=== PATIENT | female | born 2000 | race Caucasian/White ===

== ENCOUNTER 2023-03-11 14:41 | Outpatient (CLI) | payer OTHER, SELFPAY ==
[2023-03-11 16:04] LABS: HIV 1/2 Ab P24 Ag Result Negative (Negative)
[2023-03-11 17:39] LABS: Hepatitis C Virus Antibody Negative (Negative)
[2023-03-12 16:39] LABS: Rapid Plasma Reagin Non-Reactive (NonReactive)
[2023-03-17 18:01] LABS: HSV 1 IgM Screen Negative (Negative); HSV 2 IgM Screen Negative (Negative)
== END 2023-03-11 14:42 | disposition home or self-care (01) ==
PROVIDERS: PCP Pediatrics; Visit Provider Registered Nurse
DX: Z20.2 Contact with and (suspected) exposure to infections with a predominantly sexual mode of transmission (principal)
CPT/HCPCS: 36415; 86592; 86695; 86696; 86703; 86803; G0432

== ENCOUNTER 2023-08-31 16:31 | Outpatient (CLI) | payer OTHER, SELFPAY ==
[2023-08-31 17:28] LABS: Basophils Percent Auto 0.3 % (0.2-1.2); Eosinophils Absolute Auto 0.1 K/mm3 (0-0.3); Eosinophils Percent Auto 1.7 % (0-4.4); Hematocrit 39.8 % (37.0-47.0); Hemoglobin 13.1 g/dL (12.0-15.0); Lymphocytes Absolute Auto 2.17 K/mm3 (0.9-3.2); Mean Corpuscular HGB Conc 32.9 g/dl (32-36); Mean Corpuscular Hemoglobin 29.8 pg (26-34); Mean Corpuscular Volume 90.5 fl (80-100); Mean Platelet Volume 9.6 fl (7.4-10.4); Monocytes Absolute Auto 0.5 K/mm3 (0.1-0.6); Monocytes Percent Auto 8.5 % (2.6-8.5); Neutrophils Absolute Auto 3.1 K/mm3 (1.3-6.7); Neutrophils Percent Auto 52.5 % (45.5-73.1); Platelet Count Result 319 k/mm3 (150-375); Red Cell Distribution Width 11.9 % (11.5-14.5); White Blood Count 5.9 K/mm3 (4.5-10.0)
[2023-08-31 17:44] LABS: Alanine Aminotransferase 33 U/L (6-35); Albumin Level 4.5 g/dL (3.5-5.1); Alkaline Phosphatase 41 U/L (38-126); Anion Gap 10 mmol/L (8-16); Aspartate Amino Transferase 28 U/L (14-36); Bilirubin,Total 0.4 mg/dL (0.2-1.3); Blood Urea Nitrogen 10 mg/dL (7-17); Calcium 9.2 mg/dL (8.4-10.2); Carbon Dioxide 23 mmol/L (22-30); Chloride 104 mmol/L (98-107); Cholesterol 206 mg/dL (0-200); Estimated Glomerular Filt Rate > 60; Glucose 114 mg/dL (65-110); HDL Direct 36 mg/dL; Potassium 3.7 mmol/L (3.4-5.0); Sodium 137 mmol/L (137-145); Triglycerides 408 mg/dL (<150)
[2023-08-31 17:55] LABS: LDL Cholesterol Direct 118 mg/dL
== END 2023-08-31 16:32 | disposition home or self-care (01) ==
LOC: ANHLAB 16:33
PROVIDERS: PCP Family Medicine Adolescent Medicine; Visit Provider Nurse Practitioner Family
DX: R55 Syncope and collapse (principal); R79.89 Other specified abnormal findings of blood chemistry; Z13.220 Encounter for screening for lipoid disorders
CPT/HCPCS: 36415; 80053; 80061; 84443; 85025

== ENCOUNTER 2023-09-11 14:09 | Emergency (ER) | payer OTHER, SELFPAY ==
[2023-09-11 14:23] VITALS: BP 114/66; PULSE 93; RESP 16; TEMP 36.6; O2SAT 98
--- NOTE | 2023-09-11 14:48 | ED.URI ---
HPI - URI/Sore Throat General Chief Complaint: Upper Respiratory Infection Stated Complaint: SORE THROAT History of Present Illness HPI Narrative: 23-year-old female presents for complaint of sore throat about 4 days. She also reports nasal congestion and drainage. She denies cough shortness of breath, wheezing, nausea, vomiting, fevers chills. Not taking anything for symptoms. Endorses sick contacts, she works as a teacher. Related Data Allergies Allergy/AdvReac Type Severity Reaction Status Date / Time Sulfa (Sulfonamide Allergy Severe Difficulty Verified 09/11/23 14:34 Antibiotics) Breathing amoxicillin Allergy Intermediate Hives Verified 09/11/23 14:34 cefdinir Allergy Intermediate Hives Verified 09/11/23 14:34 clarithromycin Allergy Unknown Hives Verified 09/11/23 14:34 POTASSIUM CLAVULANATE Allergy Unknown HIVES Uncoded 09/11/23 14:34 Review of Systems Review of Systems: CONSTITUTIONAL: Denies body aches, fever, chills, or sweats. EYES: Denies visual changes, redness, or discharge. ENT: reports rhinorrhea, congestion, sore throat CARDIOVASCULAR: Denies chest pain, palpitations, or edema. RESPIRATORY: Denies dyspnea. GASTROINTESTINAL: Denies abdominal pain, nausea, vomiting, or diarrhea. SKIN: Denies rash, itching, or wounds. MUSCULOSKELETAL: Denies back pain, joint pain, or myalgia. NEUROLOGIC: Denies headache PMFSH Past Medical History Medical History Anxiety Benign mole Fracture of metatarsal of left foot, closed Left ankle pain Nexplanon removal Sebaceous cyst Surgical History Surgical History History of incision and drainage (2019) Parotid Cyst History of tonsillectomy and adenoidectomy (2020) [place] teeth removed Family History Family History Mother Asthma Depression Heart disease Father Hypertension Elevated cholesterol Sibling Depression Grandparent Breast cancer Lung cancer Social History Social History Smoking status: Never smoker Alcohol intake: current Alcohol use details: seltzers no more than every other weekend. Substance use: never Lack of Transportation: No Lack of Food: Never True Current Housing: I Have Housing Concerned About Future Housing: No Difficulty Paying Gas/Electric Bills: No Difficulty Paying for Meds: No Currently Unemployed: No Education: Bachelor's Degree Difficulty w/ Childcare or Family Care: No Living arrangements: with roommate(s) Additional living arrangements comments: College student Occupation/Education: student Gender identity (if verbalized by the patient): Female Sexual Orientation (if Verbalized by the Patient): Straight or Heterosexual Spiritual care concerns: No Exam Narrative: GENERAL: well-appearing, no acute distress. EYES: conjunctivae clear ENT: Mucous membranes moist. TMs pearly oneal with normal light reflex bilaterally; no tragal tenderness. Oropharynx erythematous without lesions. Tonsils absent No drooling, no hoarseness, no trismus, uvula midline. No tripod positioning, hot potato voice, or soft palate swelling. NECK: Supple. No lymphadenopathy CHEST: Clear to auscultation, breath sounds equal. No respiratory distress, speaks in full sentences. HEART: Regular rate and rhythm. No murmur heard. SKIN: Warm, dry, no rash. NEURO: Alert and oriented x3. Course Course Emergency Course: Patient is aware of diagnosis, understands and agrees to treatment plan. Anticipatory guidance given. Patient agrees to follow-up as directed and is aware of reasons to seek care at the emergency department. Portions of this record may have been created with voice recognition software Level of Care: Express Care Visit Vital Signs Vital signs: Vital Signs [place]
== END 2023-09-11 15:06 | disposition home or self-care (01) ==
PROVIDERS: Emergency Provider Nurse Practitioner Family; PCP Family Medicine Adolescent Medicine
DX: J02.9 Acute pharyngitis, unspecified (principal); F41.9 Anxiety disorder, unspecified
CPT/HCPCS: 87081; 87880; 99213; G0463

== ENCOUNTER 2024-01-01 10:32 | Emergency (ER) | payer OTHER, SELFPAY ==
[2024-01-01 10:48] VITALS: BP 117/84; PULSE 118; RESP 16; TEMP 36.5; O2SAT 99
--- NOTE | 2024-01-01 11:02 | ED.URI ---
HPI - URI/Sore Throat General Chief Complaint: Upper Respiratory Infection Stated Complaint: SORE THROAT/CONGESTION/FEVER Time Seen by Provider: 01/01/24 10:53 Source: patient and RN notes reviewed Mode of arrival: ambulatory Limitations: no limitations History of Present Illness HPI Narrative: Patient presents today complaining of body aches, fatigue, fever up to 101, sore throat, congestion. Symptoms began yesterday. She has tried DayQuil, NyQuil, Tylenol and currently rates her pain 02/06. COVID-19 a at home negative Related Data Home Medications Medication Instructions Recorded Confirmed drospirenone (contraceptive) 4 mg 1 tablet PO DAILY 01/01/24 01/01/24 (28) tablet (Slynd) Allergies Allergy/AdvReac Type Severity Reaction Status Date / Time Sulfa (Sulfonamide Allergy Severe Difficulty Verified 01/01/24 10:40 Antibiotics) Breathing amoxicillin Allergy Intermediate Hives Verified 01/01/24 10:40 cefdinir Allergy Intermediate Hives Verified 01/01/24 10:40 clarithromycin Allergy Unknown Hives Verified 01/01/24 10:40 POTASSIUM CLAVULANATE Allergy Unknown HIVES Uncoded 01/01/24 10:40 Review of Systems Review of Systems: CONSTITUTIONAL: + body aches, fatigue, fever EYES: Denies visual changes, redness, or discharge. ENT: Denies rhinorrhea, or otalgia.+ congestion, sore throat CARDIOVASCULAR: Denies chest pain, palpitations, or edema. RESPIRATORY: Denies cough or dyspnea. GASTROINTESTINAL: Denies abdominal pain, nausea, vomiting, or diarrhea. GENITOURINARY: Denies dysuria or hematuria. SKIN: Denies rash, itching, or wounds. MUSCULOSKELETAL: Denies back pain, joint pain, or myalgia. NEUROLOGIC: Denies headache, numbness, tingling, or weakness. PSYCH: Denies depression or anxiety. [facility] Past Medical History Medical History Anxiety Benign mole Fracture of metatarsal of left foot, closed Left ankle pain Nexplanon removal Sebaceous cyst Surgical History Surgical History History of incision and drainage (2019) Parotid Cyst History of tonsillectomy and adenoidectomy (2020) [place] teeth removed Family History Family History Mother Asthma Depression Heart disease Father Hypertension Elevated cholesterol Sibling Depression Grandparent Breast cancer Lung cancer Social History Social History Smoking status: Never smoker Alcohol intake: current Alcohol use details: seltzers no more than every other weekend. Substance use: never Lack of Transportation: No Lack of Food: Never True Current Housing: I Have Housing Concerned About Future Housing: No Difficulty Paying Gas/Electric Bills: No Difficulty Paying for Meds: No Currently Unemployed: No Education: Bachelor's Degree Difficulty w/ Childcare or Family Care: No Living arrangements: with roommate(s) Additional living arrangements comments: College student Occupation/Education: student Gender identity (if verbalized by the patient): Female Sexual Orientation (if Verbalized by the Patient): Straight or Heterosexual Spiritual care concerns: No Comments At time of signature, I have reviewed and agree with nursing past medical, surgical, social and family history unless otherwise noted. Please see nursing chart for further information. There is no relevant family history pertinent to the presenting complaint Exam Narrative: GENERAL: Mildly ill-appearing, well-nourished, and in no acute distress. HEAD: Normocephalic, atraumatic. EYES: EOMI. No redness or drainage. Conjunctivae normal. ENT: Mucous membranes pink and moist. Nares congested with rhinorrhea. TMs normal bilaterally. Throat normal. Uvula midline. NECK: Normal AROM. Supple. No lymphadenopathy. C
== END 2024-01-01 11:25 | disposition home or self-care (01) ==
PROVIDERS: Emergency Provider Nurse Practitioner; PCP Family Medicine Adolescent Medicine
DX: B34.9 Viral infection, unspecified (principal)
CPT/HCPCS: 87081; 87804; 87880; 99213; G0463

== ENCOUNTER 2024-02-25 10:12 | Outpatient (CLI) | payer OTHER, SELFPAY ==
[2024-02-25 10:44] LABS: Basophils Percent Auto 0.5 % (0.2-1.2); Eosinophils Absolute Auto 0.1 K/mm3 (0-0.3); Hematocrit 42.3 % (37.0-47.0); Immature Granulocyte Absolute 0.02 K/mm3 (0.00-0.031); Immature Granulocyte Percent A 0.2 % (0-0.5); Lymphocytes Absolute Auto 1.83 K/mm3 (0.9-3.2); Mean Corpuscular HGB Conc 33.1 g/dl (32-36); Mean Corpuscular Hemoglobin 29.7 pg (26-34); Mean Corpuscular Volume 89.6 fl (80-100); Mean Platelet Volume 9.3 fl (7.4-10.4); Monocytes Absolute Auto 0.6 K/mm3 (0.1-0.6); Monocytes Percent Auto 7.1 % (2.6-8.5); Neutrophils Absolute Auto 5.7 K/mm3 (1.3-6.7); Neutrophils Percent Auto 69.2 % (45.5-73.1); Platelet Count Result 324 k/mm3 (150-375); Red Blood Count 4.72 M/mm3 (4.2-5.4); Red Cell Distribution Width 12.7 % (11.5-14.5); White Blood Count 8.3 K/mm3 (4.5-10.0)
[2024-02-25 10:48] LABS: Alanine Aminotransferase 41 U/L (6-35); Albumin Level 4.9 g/dL (3.5-5.1); Alkaline Phosphatase 51 U/L (38-126); Anion Gap 10 mmol/L (4-12); Aspartate Amino Transferase 30 U/L (14-36); Bilirubin,Total 0.4 mg/dL (0.2-1.3); Blood Urea Nitrogen 12 mg/dL (7-17); CRP < 0.5 mg/dL (<1.0); Calcium 10.2 mg/dL (8.4-10.2); Carbon Dioxide 22 mmol/L (22-30); Chloride 104 mmol/L (98-107); Estimated Glomerular Filt Rate > 60; Glucose 106 mg/dL (65-110); Potassium 4.4 mmol/L (3.4-5.0); Sodium 136 mmol/L (137-145)
[2024-02-25 10:51] LABS: Immunoglobulin A 352 mg/dL (70-400)
[2024-02-29 09:32] LABS: Tissue Transglutaminase IgA Ab <1.0 U/mL (<15.0)
== END 2024-02-25 10:13 | disposition home or self-care (01) ==
PROVIDERS: PCP Family Medicine Adolescent Medicine
DX: R10.9 Unspecified abdominal pain (principal)
CPT/HCPCS: 36415; 80053; 82784; 85025; 86140; 86364

== ENCOUNTER 2024-12-28 09:25 | Outpatient (CLI) | payer OTHER, SELFPAY ==
[2024-12-28 10:40] LABS: Alanine Aminotransferase 26 U/L (6-35); Albumin Level 4.5 g/dL (3.5-5.1); Alkaline Phosphatase 47 U/L (38-126); Aspartate Amino Transferase 26 U/L (14-36); Bilirubin,Total 0.4 mg/dL (0.2-1.3)
[2024-12-28 10:55] LABS: Iron 84 ug/dL (37-170)
[2024-12-28 11:04] LABS: Percent Iron Saturation 24 % (20-50)
[2024-12-28 11:28] LABS: Hepatitis B Surface Antigen Negative (Negative)
[2024-12-28 11:46] LABS: Hepatitis B Surface Anti Res Negative; Hepatitis C Virus Antibody Negative (Negative)
[2024-12-29 06:18] LABS: Hepatitis B Core Ab Total NON-REACTIVE (NON-REACTIVE)
[2024-12-29 11:03] LABS: Alpha-1-Antitrypsin, QN 115 mg/dL (83-199); Ceruloplasmin 23 mg/dL (14-48)
[2024-12-30 10:12] LABS: Actin Antibody (IgG) 25 U (<20)
== END 2024-12-28 09:26 | disposition home or self-care (01) ==
DX: K62.5 Hemorrhage of anus and rectum (principal); R74.01 Elevation of levels of liver transaminase levels
CPT/HCPCS: 36415; 80076; 82103; 82390; 82728; 83540; 83550; 86364; 86704; 86706; 86803; 87340

== ENCOUNTER 2025-01-06 08:15 | Outpatient (CLI) | payer OTHER, SELFPAY ==
--- NOTE | ~2025-01-06 | US_ITS ---
EXAMINATION TYPE: US breast RT limited COMPARISON: NONE REASON FOR STUDY: N63.0 - Unspecified lump in unspecified breast TECHNIQUE: Targeted sonographic evaluation of the right breast was performed. INTERPRETATION: At the 7:00 position right breast, 4 cm from the nipple, there is a 1.4 x 1.4 x 1.1 cm circumscribed hypoechoic mass with mildly lobulated borders. There is minimal internal heterogeneity lesion. IMPRESSION: 1.4 x 1.4 x 1.1 cm solid mass at 7:00 position right breast, as detailed above. 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 Alternatively, six-month fo llow-up ultrasound can be performed to assess for stability. BI-RADS CATEGORY: BI-RADS 4A: Suspicious, consider biopsy Reviewed, dictated and finalized at location . ODULE ASSEMBLY MACHINE TENDER IMPRESSION: 1.4 x 1.4 x 1.1 cm solid mass at 7:00 position right breast, as detailed above. 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 Alternatively, six-month follow-up ultrasound can be performed to assess for stability. BI-RADS CATEGORY: BI-RADS 4A: Suspicious, consider biopsy
--- OUTSIDE RECORDS SUMMARY | 2025-01-06 08:22 | XMS_ITS | Referral Summary ---
Author Organization [facility] Address [address] [place] [address] Care Team Providers Care Drilling Field Professional Name Role Phone Angle Saul MD Primary Care Provider [phone] Source Comments [facility],non-owned Affiliates and Associated Physician Practices is amultiple site organization consisting of ambulatory clinics and hospital sitesin [place], [place], [place] and [place]. This disclosure is being madepursuant to the Care Everywhere program and may not contain all information available regarding this patient. Last updated 18.[facility] [employer] Encounters Date Type Department Care Team Description 11/19/2024 Travel from Last 3 Months Allergies Active Allergy Reactions Criticality Noted Date Comments Amoxicillin Urticaria Medium 08/07/2016 Amoxicillin-Pot Clavulanate Urticaria,Rash Medium 09/21/2017 Augmentin Rash Medium 09/21/2017 Cefepime Itching Medium 05/05/2019 Clarithromycin Rash,Urticaria Medium 08/07/2016 Clavulanic Acid Urticaria Medium 08/07/2016 Fluoxetine Psychiatric High 11/19/2024 Suicidal Ideations Sulfa Drugs Anaphylaxis High 05/05/2019 Medications * Be aware that medications may not be up to date on this document. Alwaysverify current medications with the patient. Medication Sig Dispensed Refills Start Date End Date Status montelukast (SINGULAIR) 10 MG tablet Take 10 mg by mouth at bedtime Active omeprazole (PriLOSEC) 20 MG capsule Take 1 (one) capsule by mouth daily before breakfast Active dicyclomine (Bentyl) 10 MG capsule Take 1 (one) capsule by mouth 4 times daily as needed (GI Issues) Active venlafaxine XR 24hr (Effexor XR) 75 MG capsule Take 1 (one) capsule by mouth daily with breakfast for 14 days, THEN 2 (two) capsules daily with breakfast for 16 days. 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/19/2024 Generalized anxiety disorder 11/19/2024 Chronic left-sided low back pain with sciatica 1 01/10/2017 Resolved Problems Problem Noted Date Diagnosed Date Resolved Date Ingrown nail of great toe of right foot 01/06/2023 11/19/2024 Acute gastroenteritis 10/02/20222023 Epigastric pain 10/02/2022 11/19/2024 Burning with urination 12/27/201911/19 Cellulitis of face Parotid abscess 11/19/2024 Social History Tobacco Use Types Packs/Day Years Used Date Smoking Tobacco: Passive Smo ke Exposure - Never Smoker Smokeless Tobacco: Never Alcohol Use Standard Drinks/Week Comments Yes 0 (1 standard drink = 0.6 oz pur e alcohol) socially Education Answer Date Recorded What is the highest level of school you have completed or the highest degree you have received? Bachelor's degree (e.g., BA, AB, BS) 11/19/2024 Sex and Gender Information Value Date Recorded Sex Assigned at Not on file Gender Identity Not on file Sexual Orientation Not on file Last Filed Vital Signs Vital Sign Reading Time Taken Comments Blood Pressure 124/79 11/19/2024 5:08 PM CYTOLOGY TEACHER Pulse 86 11/19/2024 5:08 PM CYTOLOGY TEACHER Temperature 36.4 C (97.5 F) 11/19/2024 5:08 PM CYTOLOGY TEACHER Respiratory Rate 18 03/20/2024 2:18 AM CDT Oxygen Saturation 98% 03/20/2024 3:31 AM CDT Inhaled Oxygen Concentration 95% 05/05/2019 5 :00 PM CDT Weight 109.3 kg (241 lb) 11/19/2024 5:08 PM CYTOLOGY TEACHER Height 172.7 cm (5' 8 ) 11/19/2024 5:08 PM CYTOLOGY TEACHER Body Mass Index 36.64 11/19/2024 5:08 PM CYTOLOGY TEACHER Plan of Treatment Not on file Advance Directives * Full Code (Latest Code Status on File) Date Activated Date Inactivated Comments 05/05/2019 5:23 PM 05/08/2019 4:29 PM Care Teams Drilling Field Professional Relationship Specialty Start Date End Date Angle Saul MD [address] [place] [address] PCP - General Pediatrics 09/21/17
--- OUTSIDE RECORDS SUMMARY | 2025-01-06 08:22 | XMS_ITS | Continuity of Care Document ---
Author Organization [facility] [facility] Address [address] [place] [address] Phone Care Team Providers Care Photographic Hand Developer Name Role Phone Deon Larson MD Unavailable [...] Procedure Date HEALTH RISK ASSESSMENT, PATIENT-FOCUSED OFFICE [id number] HEALTH RISK ASSESSMENT, PATIENT-FOCUSED OFFICE [id number] BODY MASS INDEX DOCD SYST BP LT 130 MM HG DIAST BP 80-89 MM HG Advance Directives Directive Yes / No Effective Date File Name No Information Encounters Encounter Description Practice Location Reason(s) For Visit Diagnoses Date Provider Providers Copied on Encounter [facility], [address], [place], [place], [id number] , tel: [phone] [facility] Asthma Allergy Buna No Information [address] [place] [address], [id number] , . tel: [phone] [facility], [address], [place], [place], [id number] , tel: [phone] [facility] Asthma Allergy Buna No Information 3 Neo Chavarria. [address] [place] [address], [id number] , . tel: [phone] OFFICE [id number] [facility], [address], [place], [place], [id number] , tel: [phone] [facility] Asthma Allergy Buna asthma (chief complaint) Asthma-con trol (chief complaint) allergies (chief complaint) GERD (chief complaint) Mild persistent asthma, uncomplicatedSeason al allergic rhinitis due to pollenGastroesophag eal reflux disease, unspecified whether esophagitis present 2 [address] [place]. [address], [id number] , . tel: [phone] Referring Provider: Deon Larson [address] [place] [address], [address] . tel:[phone] OFFICE [id number] TAILED [facility], [address], [place], [place], [id number] , tel: [phone] [facility] Asthma Allergy Buna asthma (chief complaint) Asthma-con trol (chief complaint) allergies (chief complaint) Seasonal allergic rhinitis due to pollenModerate persistent asthma, uncomplicatedAcute atopic conjunctivitis, bilateral Hugo- 0 Neo [place]. [address], [id number] , . tel: [phone] Referring Provider: Angle Saul, [address] [facility] [address], [place], [address]. tel:[phone] [facility], [address], [place], [place], [id number] , tel: [phone] [facility] asthma (chief complaint) Asthma-con trol (chief complaint) allergies (chief complaint) Mild intermittent asthma, uncomplicatedSeason al allergic rhinitis due to pollenAcute atopic conjunctivitis, bilateral 9 Neo [address]. [address], [id number] , . tel: [phone] Referring Provider: Angle Saul, [address] [facility] [address], [place], [address]. tel:[phone] [facility] [facility], [address], [place], [place], [id number] , tel: [phone] [facility] Asthma Allergy Buna Seasonal allergic rhinitis due to pollenMild intermittent asthma without [facility] allergic rhinitis due to other allergic trigger 8 Neo [address]. [address], [id number] , [place]. tel: [phone] Referring Provider: Angle Saul, [address] [facility] [address], [place], [address]. tel:[phone] [facility], [address], [place], [place], [id number] , tel: [phone] [facility] Mild intermittent asthma without complicationSeasona l allergic rhinitis due to pollenAcute atopic conjunctivitis, bilateral Feb 7 Neo [address]. [address] [facility] [address], [id number] , . tel: [phone] Referring Provider: Hetal Luong[address] [facility] [address], [place], [address]. tel:[phone] [facility], [address], [place], [place], [id number] , tel: [phone] [facility] All[facility] Shortness of breathSeasonal allergic rhinitis due to pollenNon-seasonal allergic rhinitis due to other allergic trigger Jul- Neo Chavarria. [address] [facility], [facility] [address], [place], [id number] , . tel: [phone] Referring Provider: Angle Saul [address] [facility] [address], [place], [address]. tel:[phone] Family History Family Member Type Diagnosis Age At Onset Mother Problem (finding) asthma Mother Problem (finding) Allergies Father Problem (finding) Allergies Maternal uncle Problem (finding) Allergies Payers Payer name Insurance type Covered alliance party ID Dior rosales(s) R [employer] CI [id number] Social History Type Description Quantity Date Captured Comments Alcohol Use Details Unknown Caffeine Use Details Unknown Tobacco Use Status No Information Smoking Status No Information Sex Female Chief Complaint And Reason For Visit No Information Reason For Referral Reason For Referral No Information History Of Present Illness Encounter Date Complaint History Of Prese nt Illness Asthma-control Clair was seen t summer for [...] mg qd prn acid reflux symptoms. 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 asthma Asthma-control Clair was seen jack wheeler [...] Was living in a (Freshman, Sor[employer] house ([facility]) that had mold and cockroach problem allergies allergies asthma allergies (comments) Allergens: TREES, GRASS, and COCKROACH [...] 6 months (Freshman, Sorority house normally air-conditioned) Asthma-control Clair was seen jack wheeler for [...] rhinitis due to pollen We spoke via [facility] for your visit today Asthma is overall [...]
--- OUTSIDE RECORDS SUMMARY | 2025-01-06 08:22 | XMS_ITS | Clinical Summary ---
Author Organization [facility] [employer] Address [address] [place] [address] Care Team Providers Care Eyewear Manufacturing Supervisor Name Role Phone Angle Saul MD Primary Care Provider [phone] Source Comments [facility] [employer],non-owned Affiliates and Associated Physician Practices is amultiple site organization consisting of ambulatory clinics and hospital sitesin [place], [place], [place] and [place]. This disclosure is being madepursuant to the Care Everywhere program and may not contain all information available regarding this patient. Last updated 18.[facility] [employer] Allergies Active Allergy Reactions Criticality Noted Date [...] Burning with urination 12/27/201911/19 Cellulitis of face 4 Parotid abscess 11/19/2024 Encounters Date Type Department Care Team Description 11/19/2024 Travel from Last 3 Months Family History Medical History Relation Name Comments ADD/ADHD Brother Anxiety Disorder Mother Anesthesia Reaction Neg Hx Completed Suicide Neg Hx Relation Name Status Comments Brother Mother Social History Tobacco Use Types Packs/Day Years [...] Comments Blood Pressure 124/79 11/19/2024 5:08 PM DIMENSIONAL INSPECTOR Pulse 86 11/19/2024 5:08 PM DIMENSIONAL INSPECTOR Temperature 36.4 C (97.5 F) 11/19/2024 5:08 PM DIMENSIONAL INSPECTOR Respiratory Rate 18 03/20/2024 2:18 AM CDT Oxygen Saturation 98% 03/20/2024 3:31 AM CDT Inhaled Oxygen Concentration 95% 05/05/2019 5 :00 PM CDT Weight 109.3 kg (241 lb) 11/19/2024 5:08 PM DIMENSIONAL INSPECTOR Height 172.7 cm (5' 8 ) 11/19/2024 5:08 PM DIMENSIONAL INSPECTOR Body Mass Index 36.64 11/19/2024 5:08 PM DIMENSIONAL INSPECTOR Plan of Treatment Health Maintenance Due Date Last Done Comments PAP SMEAR 2000 HIV SCREENING 2015 HPV VACCINE (1 - 3-dose series) 2015 CHLAMYDIA/GONORRHEA SCREENING 2016 HEPATITIS C SCREENING 01/15/2018 DTAP/TDAP/TD VACCINES (1 - Tdap) 2019 HEPATITIS B VACCINE (1 of 3 - 19+ 3-dose series) 2019 PNEUMOCOCCAL VACCINE (1 of 2 - PCV) 2019 COVID-19 VACCINE ( season) 2024 12/03/2022, 11/17/2021, 03/02/2021, Additional history exists INFLUENZA VACCINE (#1) 2024 2, 11/17/2021, 08/30/2020, Additional history exists DEPRESSION SCREENING 11/30/2024 ZOSTER VACCINE (1 of 2) 2050 HIB VACCINE Aged Out No longer eligi ble based on patient's age to complete this topic MENINGOCOCCAL (Group B) VACCINE Aged Out No longer eligible based on patient's age to complete this topic MENINGOCOCCAL VACCINE Aged Out No eric rogerio eligible based on patient's age to complete this topic Advance Directives * Full Code (Latest Code Status on File) Date Activated Date Inactivated Comments 05/05/2019 5:23 PM 05/08/2019 4:29 PM Care Teams Eyewear Manufacturing Supervisor Relationship Specialty Start Date End Date Angle Saul MD [address] [facility] [address] [place] [address] PCP - General Pediatrics 09/21/17
--- OUTSIDE RECORDS SUMMARY | 2025-01-06 08:22 | XMS_ITS | Patient Health Summary ---
Author Organization [facility] Address [address] [place] [address] Care Team Providers Care Sterile Processing Tech Name Role Phone Angle Saul MD Primary Care Provider [phone] Note from [facility],non-owned Affiliates and Associated Physician Practices is amultiple site organization consisting of ambulatory clinics and hospital sitesin [place], [place], [place] and [place]. This disclosure is being madepursuant to the Care Everywhere program and may not contain all information available regarding this patient. Last updated 18.[facility] Allergies * Amoxicillin(Urticaria) -Medium Criticality * Amoxicillin-Pot Clavulanate(Urticaria,Rash) -Medium Criticality * Augmentin(Rash) -Medium Criticality * Cefepime(Itching) -Medium Criticality * Clarithromycin(Rash,Urticaria) -Medium Criticality * Clavulanic Acid(Urticaria) -Medium Criticality * Fluoxetine(Psychiatric) -High Criticality * Sulfa Drugs(Anaphylaxis) -High Criticality * Cefdinir(Rash) -Medium Criticality,Inactive * Lactose(GI Discomfort),Inactive Medications * Be aware that medications may not be up to date on this document. Alwaysverify current medications with the patient. * montelukast (SINGULAIR) 10 MG tablet Take 10 mg by mouth at bedtime * omeprazole (PriLOSEC) 20 MG capsule Take 1 (one) capsule by mouth daily before breakfast * dicyclomine (Bentyl) 10 MG capsule Take 1 (one) capsule by mouth 4 times daily as needed (GI Issues) * venlafaxine XR 24hr (Effexor XR) 75 MG capsule(Started 11/19/2024) Take 1 (one) capsule by mouth daily with breakfast for 14 days, THEN 2 (two) capsules daily with breakfast for 16 days. * propranolol (Inderal) 10 MG tablet(Started 11/19/2024) Take 1 (one) tablet to 2 (two) tablets by mouth 2 times daily as needed (Anxiety) Reasons: Anxiety Related to Current Life Problems * hydrOXYzine HCl (Atarax) 25 MG tablet(Started 11/19/2024) Take 1 (one) tablet to 2 (two) tablets by mouth 4 times daily as needed for Itching Reasons: Feeling Anxious Active Problems Problem Noted Date Diagnosed Date [...] Comments Blood Pressure 124/79 11/19/2024 5:08 PM ACTUARIAL MANAGER Pulse 86 11/19/2024 5:08 PM ACTUARIAL MANAGER Temperature 36.4 C (97.5 F) 11/19/2024 5:08 PM ACTUARIAL MANAGER Respiratory Rate 18 03/20/2024 2:18 AM CDT Oxygen Saturation 98% 03/20/2024 3:31 AM CDT Inhaled Oxygen Concentration 95% 05/05/2019 5 :00 PM CDT Weight 109.3 kg (241 lb) 11/19/2024 5:08 PM ACTUARIAL MANAGER Height 172.7 cm (5' 8 ) 11/19/2024 5:08 PM ACTUARIAL MANAGER Body Mass Index 36.64 11/19/2024 5:08 PM ACTUARIAL MANAGER Procedures * CT CHEST ABDOMEN PELVIS WO CONT(Performed 03/20/2024) Performed for Fall from height of greater than 3 feet * CT LUMBAR SPINE WO CONTRAST(Performed 03/20/2024) Performed for Fall from height of greater than 3 feet * CT THORACIC SPINE WO CONTRAST(Performed 03/20/2024) Performed for Fall from height of greater than 3 feet * CT CERVICAL SPINE WO CONTRAST(Performed 03/20/2024) Performed for Fall from height of greater than 3 feet * CT HEAD WO CONTRAST(Performed 03/20/2024) Performed for Fall from height of greater than 3 feet * XR KNEE RIGHT 3VW(Performed 03/20/2024) Performed for Fall from height of greater than 3 feet * XR PELVIS W RIGHT HIP 2VW(Performed 03/20/2024) Performed for Fall from height of greater than 3 feet * ALCOHOL ETHYL BLOOD(Performed 03/20/2024) * HCG BETA BLOOD QUANTITATIVE(Performed 03/20/2024) * COMPREHENSIVE METABOLIC PANEL(Performed 03/20/2024) * CBC W AUTO DIFFERENTIAL(Performed 03/20/2024) * HCG URINE QUAL POCT NOTIFICATION(Performed 05/31/2020) Performed for Tonsillitis * GROSS EXAM PATHOLOGY (STL)(Performed 05/31/2020) Performed for Acute tonsillitis, unspecified etiology * ENDOTRACHEAL TUBE NOTE(Performed 05/31/2020) * TONSILLECTOMY AND ADENOIDECTOMY(Performed 05/31/2020) Performed for Acute tonsillitis, unspecified etiology * HCG URINE QUALITATIVE - POCT (IP) INTERFACED(Performed 05/31/2020) * SARS-COV-2 (COVID-19) IN HOUSE(Performed 05/28/2020) Performed for Pre-op testing * CULTURE FUNGUS OTHER+FUNGUS SMEAR(Performed 05/05/2019) Performed for Parotid abscess * CULTURE ABSCESS+GRAM STAIN(Performed 05/05/2019) Performed for Parotid abscess * CULTURE AFB+SMEAR(Performed 05/05/2019) Performed for Parotid abscess * CULTURE ANAEROBE(Performed 05/05/2019) Performed for Parotid abscess * INCISION AND DRAINAGE HEAD/NECK(Performed 05/05/2019) Performed for Parotid abscess * HCG URINE QUALITATIVE - POCT (IP) INTERFACED(Performed 05/05/2019) * HCG URINE QUAL POCT NOTIFICATION(Performed 05/05/2019) * CT NECK SOFT TISSUE W CONT(Performed 05/05/2019) Performed for Cellulitis of face * BASIC METABOLIC PANEL (CALCIUM TOTAL)(Performed 05/05/2019) * CBC W AUTO DIFFERENTIAL(Performed 05/05/2019) * NM BONE SCAN WHOLE BODY(Performed 10/01/2017) Performed for Spondylolysis * XR LUMBAR SPINE IN OR 1VW(Performed 09/21/2017) Performed for Acute left-sided low back pain without sciatica * XR SPINE ENTIRE 2 OR 3VW(Performed 09/21/2017) Performed for Acute left-sided low back pain without sciatica Results * CT CHEST ABDOMEN PELVIS WO CONT (03/20/2024 5:17 AM CDT) Anatomical Region Laterality Modality Chest, Abdomen, Pelvis Computed Tomography 03/20/2024 5:20 AM CDT Impressions 03/20/2024 10:21 AM CDT Impression: 1.No acute injury identified in the chest, abdomen, or pelvis. 2.Diffuse hepatic steatosis. > Dictated by Stefanie Howard MD (resident assistant). I, Ayde Lujan MD have personally reviewed and interpreted this examination/study. > Interpreting Provider: Ayde Lujan MD on 03/20/2024 10:21 AM Narrative 03/20/2024 10:21 AM CDT EXAMINATION: CT CHEST ABDOMEN PELVIS WO CONT DATE/TIME OF EXAM: 03/20/2024 5:18 AM, LOCATION [facility] HISTORY: W17.89XA: Fall from height of greater than 3 feet fall COMPARISON: No prior study is available for comparison. TECHNIQUE: CT of the chest, abdomen, and pelvis was performed without contrast according to standard protocol. Findings: Evaluation of visceral and vascular structures is degraded due to lack of intravenous contrast administration. Chest: Lines and tubes: None. Lower Neck and Axillae: The thyroid gland is normal in size. No abnormal supraclavicular or axillary lymphadenopathy is seen. Airway, Lungs and pleura: The trachea is patent. Bilateral lungs are clear. No suspicious pulmonary nodule is identified. No pleural effusion or pneumothorax. Heart and Pericardium: The heart size is normal. No pericardial effusion is present. Mediastinum and Grace: No enlarged lymph nodes are present. No mediastinal mass is identified. Thoracic Vasculature: Left-sided three-vessel aortic arch. The aorta and main pulmonary artery are normal in course and caliber. Abdomen/pelvis: Liver: The liver is diffusely hypoattenuating consistent with diffuse hepatic steatosis. Otherwise the liver appears normal. Gallbladder and Bile Ducts: Normal. The intrahepatic and extrahepatic bile ducts are nondilated. Spleen: Normal. Pancreas: Normal. Adrenals: Normal in morphology. Kidneys: The kidneys appear normal in size and configuration. No renal, ureteral, or bladder calculi are visible. There is no evidence of hydronephrosis or hydroureter. Gastrointestinal: The distal esophagus and stomach appear normal. The small bowel and colon are normal in caliber without evidence of wall thickening or obstruction. The appendix is normal. Mesentery/Peritoneum/Retroperitoneum: A few subcentimeter lymph nodes are present in right lower quadrant, nonspecific. There is no significant retroperitoneal lymphadenopathy. No free air or free fluid is present. Bladder: Normal. Reproductive Organs: The uterus is present. Bilateral adnexa are unremarkable. Vasculature: No vascular abnormality is present. Bones: No suspicious lytic or blastic lesions. The visible osseous structures are intact. Soft tissues: Normal. Procedure Note Kerry Lujan MD - 03/20/2024 EXAMINATION: CT CHEST ABDOMEN PELVIS WO CONT DATE/TIME OF EXAM: 03/20/2024 5:18 AM, LOCATION [facility] HISTORY: W17.89XA: Fall from height of greater than 3 feet fall COMPARISON: No prior study is available for comparison. TECHNIQUE: CT of the chest, abdomen, and pelvis was performed without contrast according to standard protocol. Findings: Evaluation of visceral and vascular structures is degraded due to lackof intravenous contrast administration. Chest: Lines and tubes: None. Lower Neck and Axillae: The thyroid gland is normal in size. No abnormal supraclavicular or axillary lymphadenopathy is seen. Airway, Lungs and pleura: The trachea is patent. Bilateral lungs are clear. No suspiciouspulmonary nodule is identified. No pleural effusion or pneumothorax. Heart and Pericardium: The heart size is normal. No pericardial effusion is present. Mediastinum and Grace: No enlarged lymph nodes are present. No mediastinal mass is identified. Thoracic Vasculature: Left-sided three-vessel aortic arch. The aorta and main pulmonary artery are normal in course and caliber. Abdomen/pelvis: Liver: The liver is diffusely hypoattenuating consistent with diffuse hepatic steatosis. Otherwise the liver appears normal. Gallbladder and Bile Ducts: Normal. The intrahepatic and extrahepatic bile ducts are nondilated. Spleen: Normal. Pancreas: Normal. Adrenals: Normal in morphology. Kidneys: The kidneys appear normal in size and configuration. No renal, ureteral,or bladder calculi are visible. There is no evidence of hydronephrosis or hydroureter. Gastrointestinal: The distal esophagus and stomach appear normal. The small bowel andcolon are normal in caliber without evidence of wall thickening orobstruction. The appendix is normal. Mesentery/Peritoneum/Retroperitoneum: A few subcentimeter lymph nodes are present in right lower quadrant, nonspecific. There is no significant retroperitoneal lymphadenopathy. No free air or free fluid is present. Bladder: Normal. Reproductive Organs: The uterus is present. Bilateral adnexa are unremarkable. Vasculature: No vascular abnormality is present. Bones: No suspicious lytic or blastic lesions. The visible osseous structuresare intact. Soft tissues: Normal. Impression: 1.No acute injury identified in the chest, abdomen, or pelvis. 2.Diffuse hepatic steatosis. > Dictated by Stefanie Howard MD (resident assistant). I, Ayde Lujan MD have personally reviewed and interpreted this examination/study. > Interpreting Provider: Ayde Lujan MD on 03/20/2024 10:21 AM Yolanda Love MD CT ORDERABLES * CT LUMBAR SPINE WO CONTRAST (03/20/2024 5:17 AM CDT) Anatomical Region Laterality Modality Spine Computed Tomogra phy 03/20/2024 5:07 AM CDT Impressions 03/20/2024 9:58 AM CDT IMPRESSION: 1.No acute intracranial hemorrhage, midline shift, or significant mass effect. 2.No evidence of acute fracture in the cervical, thoracic, or lumbar spine. Please refer to separately dictated CT chest/abdomen/pelvis for further characterization of thoracic, intra-abdominal, and pelvic findings. Report dictated by Ernesto Burnett M.D. (resident assistant) 03/20/2024 5:22 AM IGregory MD have personally reviewed and interpreted this examination/study. > Interpreting Provider: Gregory Rowell MD on 03/20/2024 9:58 AM Narrative 03/20/2024 9:58 AM CDT PROCEDURE: CT HEAD WO CONTRAST, CT LUMBAR SPINE WO CONTRAST, CT THORACIC SPINE WO CONTRAST, CT CERVICAL SPINE WO CONTRAST, DATE/TIME OF EXAM: 03/20/2024 5:18 AM, LOCATION [facility] INDICATION: W17.89XA: Fall from height of greater than 3 feet ADDITIONAL CLINICAL INFORMATION: Ordering Provider Reason For Exam: r/o fx (accession [id number]), r/o ich (accession [id number]), r/o fx (accession [id number]), r/o fx (accession [id number]) Technologist Note: None. Additional: None. TECHNIQUE: CT of the head and cervical spine was performed without contrast according to standard protocol. Reformatted axial, sagittal, and coronal images of the thoracic and lumbar spine were obtained by the technologist from a concurrently performed body CT and sent to the workstation for review. CT dose reduction technique was used, including Automated Exposure Control. COMPARISON: No prior study is available for comparison at the time of this dictation. FINDINGS: Head: Some of the images are degraded due to motion history artifacts. Within this limitation: Accounting for the presence of motion artifact which reduces the sensitivity to detect subtle intracranial hemorrhage, no distinct acute intra- or extra-axial fluid collections are identified. The ventricles are of normal size, shape, and morphology. The basilar cisterns are patent. No mass effect or midline shift is seen. The oneal-white matter differentiation is normal. No acute calvarial fracture is identified. The orbits appear normal. There is mild paranasal sinus disease. The mastoid air cells are clear. No soft tissue abnormality is identified. Cervical spine: Relative straightening of the cervical lordosis. Minimal dextrocurvature of the cervicothoracic junction. The alignment is otherwise maintained. Vertebral bodies are normal in height without evidence of acute fracture. The craniocervical junction is normal. The intervertebral discs appear normal. No central canal stenosis is seen. The facets appear normal. The uncovertebral joints appear normal. No neural foraminal stenosis is seen. No soft tissue abnormality is identified. Thoracic spine: Trace dextrocurvature of the thoracic spine. The alignment is otherwise maintained. Vertebral bodies are normal in height without evidence of acute fracture. The intervertebral discs appear normal. No central canal stenosis is seen. The facets appear normal. No neural foraminal stenosis is seen. No soft tissue abnormality is identified. Lumbar spine: Minimal levocurvature of the lumbar spine. The alignment is otherwise maintained. Vertebral bodies are normal in height without evidence of acute fracture. The intervertebral discs appear normal. No central canal stenosis is seen. The facets appear normal. No neural foraminal stenosis is seen. Mild degenerative changes of the SI joints. No soft tissue abnormality is identified. Procedure Note Gregory Rowell MD - 03/20/2024 PROCEDURE: CT HEAD WO CONTRAST, CT LUMBAR SPINE WO CONTRAST, CTTHORACIC SPINE WO CONTRAST, CT CERVICAL SPINE WO CONTRAST, DATE/TIME OF EXAM: 03/20/2024 5:18 AM, LOCATION [facility] INDICATION: W17.89XA: Fall from height of greater than 3 feet ADDITIONAL CLINICAL INFORMATION: Ordering Provider Reason For Exam: r/o fx (accession [id number]), r/oich (accession [id number]), r/o fx (accession [id number]), r/o fx (accession [id number]) Technologist Note: None. Additional: None. TECHNIQUE: CT of the head and cervical spine was performed withoutcontrast according to standard protocol. Reformatted axial, sagittal, and coronal images of the thoracic and lumbar spine were obtained by thetechnologist from a concurrently performed body CT and sent to the workstation for review. CT dose reduction technique was used, including AutomatedExposure Control. COMPARISON: No prior study is available for comparison at the time ofthis dictation. FINDINGS: Head: Some of the images are degraded due to motion history artifacts. Within this limitation: Accounting for the presence of motion artifact which reduces the sensitivity to detect subtle intracranial hemorrhage, no distinct acute intra- or extra-axial fluid collections are identified. The ventriclesare of normal size, shape, and morphology. The basilar cisterns are patent.No mass effect or midline shift is seen. The oneal-white matterdifferentiation is normal. No acute calvarial fracture is identified. The orbits appear normal. There is mild paranasal sinus disease. The mastoid air cells are clear. No soft tissue abnormality is identified. Cervical spine: Relative straightening of the cervical lordosis. Minimal dextrocurvatureof the cervicothoracic junction. The alignment is otherwise maintained. Vertebral bodies are normal in height without evidence of acutefracture. The craniocervical junction is normal. The intervertebral discs appear normal. No central canal stenosis is seen. The facets appear normal. The uncovertebral joints appear normal. No neural foraminal stenosis isseen. No soft tissue abnormality is identified. Thoracic spine: Trace dextrocurvature of the thoracic spine. The alignment is otherwise maintained. Vertebral bodies are normal in height without evidence ofacute fracture. The intervertebral discs appear normal. No central canal stenosis is seen. The facets appear normal. No neural foraminalstenosis is seen. No soft tissue abnormality is identified. Lumbar spine: Minimal levocurvature of the lumbar spine. The alignment is otherwise maintained. Vertebral bodies are normal in height without evidence ofacute fracture. The intervertebral discs appear normal. No central canalstenosis is seen. The facets appear normal. No neural foraminal stenosis is seen. Mild degenerative changes of the SI joints. No soft tissue abnormalityis identified. IMPRESSION: 1.No acute intracranial hemorrhage, midline shift, or significant mass effect. 2.No evidence of acute fracture in the cervical, thoracic, or lumbarspine. Please refer to separately dictated CT chest/abdomen/pelvis for further characterization of thoracic, intra-abdominal, and pelvic findings. Report dictated by Ernesto Burnett M.D. (resident assistant) 03/20/2024 5:22 AM Gregory Torrez MD have personally reviewed and interpretedthis examination/study. > Interpreting Provider: Gregory Rowell MD on 03/20/2024 9:58 AM Yolanda Love MD CT ORDERABLES * CT THORACIC SPINE WO CONTRAST (03/20/2024 5:17 AM CDT) Anatomical Region Laterality Modality Spine Computed Tomogra phy 03/20/2024 5:07 AM CDT Impressions 03/20/2024 9:58 AM CDT IMPRESSION: 1.No acute intracranial hemorrhage, midline shift, or significant mass effect. 2.No evidence of acute fracture in the cervical, thoracic, or lumbar spine. Please refer to separately dictated CT chest/abdomen/pelvis for further characterization of thoracic, intra-abdominal, and pelvic findings. Report dictated by Ernesto Burnett M.D. (resident assistant) 03/20/2024 5:22 AM IGregory MD have personally reviewed and interpreted this examination/study. > Interpreting Provider: Gregory Rowell MD on 03/20/2024 9:58 AM Narrative 03/20/2024 9:58 AM CDT PROCEDURE: CT HEAD WO CONTRAST, CT LUMBAR SPINE WO CONTRAST, CT THORACIC SPINE WO CONTRAST, CT CERVICAL SPINE WO CONTRAST, DATE/TIME OF EXAM: 03/20/2024 5:18 AM, LOCATION [facility] INDICATION: W17.89XA: Fall from height of greater than 3 feet ADDITIONAL CLINICAL INFORMATION: Ordering Provider Reason For Exam: r/o fx (accession [id number]), r/o ich (accession [id number]), r/o fx (accession [id number]), r/o fx (accession [id number]) Technologist Note: None. Additional: None. TECHNIQUE: CT of the head and cervical spine was performed without contrast according to standard protocol. Reformatted axial, sagittal, and coronal images of the thoracic and lumbar spine were obtained by the technologist from a concurrently performed body CT and sent to the workstation for review. CT dose reduction technique was used, including Automated Exposure Control. COMPARISON: No prior study is available for comparison at the time of this dictation. FINDINGS: Head: Some of the images are degraded due to motion history artifacts. Within this limitation: Accounting for the presence of motion artifact which reduces the sensitivity to detect subtle intracranial hemorrhage, no distinct acute intra- or extra-axial fluid collections are identified. The ventricles are of normal size, shape, and morphology. The basilar cisterns are patent. No mass effect or midline shift is seen. The oneal-white matter differentiation is normal. No acute calvarial fracture is identified. The orbits appear normal. There is mild paranasal sinus disease. The mastoid air cells are clear. No soft tissue abnormality is identified. Cervical spine: Relative straightening of the cervical lordosis. Minimal dextrocurvature of the cervicothoracic junction. The alignment is otherwise maintained. Vertebral bodies are normal in height without evidence of acute fracture. The craniocervical junction is normal. The intervertebral discs appear normal. No central canal stenosis is seen. The facets appear normal. The uncovertebral joints appear normal. No neural foraminal stenosis is seen. No soft tissue abnormality is identified. Thoracic spine: Trace dextrocurvature of the thoracic spine. The alignment is otherwise maintained. Vertebral bodies are normal in height without evidence of acute fracture. The intervertebral discs appear normal. No central canal stenosis is seen. The facets appear normal. No neural foraminal stenosis is seen. No soft tissue abnormality is identified. Lumbar spine: Minimal levocurvature of the lumbar spine. The alignment is otherwise maintained. Vertebral bodies are normal in height without evidence of acute fracture. The intervertebral discs appear normal. No central canal stenosis is seen. The facets appear normal. No neural foraminal stenosis is seen. Mild degenerative changes of the SI joints. No soft tissue abnormality is identified. Procedure Note Gregory Rowell MD - 03/20/2024 PROCEDURE: CT HEAD WO CONTRAST, CT LUMBAR SPINE WO CONTRAST, CTTHORACIC SPINE WO CONTRAST, CT CERVICAL SPINE WO CONTRAST, DATE/TIME OF EXAM: 03/20/2024 5:18 AM, LOCATION [facility] INDICATION: W17.89XA: Fall from height of greater than 3 feet ADDITIONAL CLINICAL INFORMATION: Ordering Provider Reason For Exam: r/o fx (accession [id number]), r/oich (accession [id number]), r/o fx (accession [id number]), r/o fx (accession [id number]) Technologist Note: None. Additional: None. TECHNIQUE: CT of the head and cervical spine was performed withoutcontrast according to standard protocol. Reformatted axial, sagittal, and coronal images of the thoracic and lumbar spine were obtained by thetechnologist from a concurrently performed body CT and sent to the workstation for review. CT dose reduction technique was used, including AutomatedExposure Control. COMPARISON: No prior study is available for comparison at the time ofthis dictation. FINDINGS: Head: Some of the images are degraded due to motion history artifacts. Within this limitation: Accounting for the presence of motion artifact which reduces the sensitivity to detect subtle intracranial hemorrhage, no distinct acute intra- or extra-axial fluid collections are identified. The ventriclesare of normal size, shape, and morphology. The basilar cisterns are patent.No mass effect or midline shift is seen. The oneal-white matterdifferentiation is normal. No acute calvarial fracture is identified. The orbits appear normal. There is mild paranasal sinus disease. The mastoid air cells are clear. No soft tissue abnormality is identified. Cervical spine: Relative straightening of the cervical lordosis. Minimal dextrocurvatureof the cervicothoracic junction. The alignment is otherwise maintained. Vertebral bodies are normal in height without evidence of acutefracture. The craniocervical junction is normal. The intervertebral discs appear normal. No central canal stenosis is seen. The facets appear normal. The uncovertebral joints appear normal. No neural foraminal stenosis isseen. No soft tissue abnormality is identified. Thoracic spine: Trace dextrocurvature of the thoracic spine. The alignment is otherwise maintained. Vertebral bodies are normal in height without evidence ofacute fracture. The intervertebral discs appear normal. No central canal stenosis is seen. The facets appear normal. No neural foraminalstenosis is seen. No soft tissue abnormality is identified. Lumbar spine: Minimal levocurvature of the lumbar spine. The alignment is otherwise maintained. Vertebral bodies are normal in height without evidence ofacute fracture. The intervertebral discs appear normal. No central canalstenosis is seen. The facets appear normal. No neural foraminal stenosis is seen. Mild degenerative changes of the SI joints. No soft tissue abnormalityis identified. IMPRESSION: 1.No acute intracranial hemorrhage, midline shift, or significant mass effect. 2.No evidence of acute fracture in the cervical, thoracic, or lumbarspine. Please refer to separately dictated CT chest/abdomen/pelvis for further characterization of thoracic, intra-abdominal, and pelvic findings. Report dictated by Ernesto Burnett M.D. (resident assistant) 03/20/2024 5:22 AM Gregory Torrez MD have personally reviewed and interpretedthis examination/study. > Interpreting Provider: Gregory Rowell MD on 03/20/2024 9:58 AM Yolanda Love MD CT ORDERABLES * CT CERVICAL SPINE WO CONTRAST (03/20/2024 5:17 AM CDT) Anatomical Region Laterality Modality Spine Computed Tomogra phy 03/20/2024 5:07 AM CDT Impressions 03/20/2024 9:58 AM CDT IMPRESSION: 1.No acute intracranial hemorrhage, midline shift, or significant mass effect. 2.No evidence of acute fracture in the cervical, thoracic, or lumbar spine. Please refer to separately dictated CT chest/abdomen/pelvis for further characterization of thoracic, intra-abdominal, and pelvic findings. Report dictated by Ernesto Burnett M.D. (resident assistant) 03/20/2024 5:22 AM Gregory Torrez MD have personally reviewed and interpreted this examination/study. > Interpreting Provider: Gregory Rowell MD on 03/20/2024 9:58 AM Narrative 03/20/2024 9:58 AM CDT PROCEDURE: CT HEAD WO CONTRAST, CT LUMBAR SPINE WO CONTRAST, CT THORACIC SPINE WO CONTRAST, CT CERVICAL SPINE WO CONTRAST, DATE/TIME OF EXAM: 03/20/2024 5:18 AM, LOCATION [facility] INDICATION: W17.89XA: Fall from height of greater than 3 feet ADDITIONAL CLINICAL INFORMATION: Ordering Provider Reason For Exam: r/o fx (accession [id number]), r/o ich (accession [id number]), r/o fx (accession [id number]), r/o fx (accession [id number]) Technologist Note: None. Additional: None. TECHNIQUE: CT of the head and cervical spine was performed without contrast according to standard protocol. Reformatted axial, sagittal, and coronal images of the thoracic and lumbar spine were obtained by the technologist from a concurrently performed body CT and sent to the workstation for review. CT dose reduction technique was used, including Automated Exposure Control. COMPARISON: No prior study is available for comparison at the time of this dictation. FINDINGS: Head: Some of the images are degraded due to motion history artifacts. Within this limitation: Accounting for the presence of motion artifact which reduces the sensitivity to detect subtle intracranial hemorrhage, no distinct acute intra- or extra-axial fluid collections are identified. The ventricles are of normal size, shape, and morphology. The basilar cisterns are patent. No mass effect or midline shift is seen. The oneal-white matter differentiation is normal. No acute calvarial fracture is identified. The orbits appear normal. There is mild paranasal sinus disease. The mastoid air cells are clear. No soft tissue abnormality is identified. Cervical spine: Relative straightening of the cervical lordosis. Minimal dextrocurvature of the cervicothoracic junction. The alignment is otherwise maintained. Vertebral bodies are normal in height without evidence of acute fracture. The craniocervical junction is normal. The intervertebral discs appear normal. No central canal stenosis is seen. The facets appear normal. The uncovertebral joints appear normal. No neural foraminal stenosis is seen. No soft tissue abnormality is identified. Thoracic spine: Trace dextrocurvature of the thoracic spine. The alignment is otherwise maintained. Vertebral bodies are normal in height without evidence of acute fracture. The intervertebral discs appear normal. No central canal stenosis is seen. The facets appear normal. No neural foraminal stenosis is seen. No soft tissue abnormality is identified. Lumbar spine: Minimal levocurvature of the lumbar spine. The alignment is otherwise maintained. Vertebral bodies are normal in height without evidence of acute fracture. The intervertebral discs appear normal. No central canal stenosis is seen. The facets appear normal. No neural foraminal stenosis is seen. Mild degenerative changes of the SI joints. No soft tissue abnormality is identified. Procedure Note Gregory Rowell MD - 03/20/2024 PROCEDURE: CT HEAD WO CONTRAST, CT LUMBAR SPINE WO CONTRAST, CTTHORACIC SPINE WO CONTRAST, CT CERVICAL SPINE WO CONTRAST, DATE/TIME OF EXAM: 03/20/2024 5:18 AM, LOCATION [facility] INDICATION: W17.89XA: Fall from height of greater than 3 feet ADDITIONAL CLINICAL INFORMATION: Ordering Provider Reason For Exam: r/o fx (accession [id number]), r/oich (accession [id number]), r/o fx (accession [id number]), r/o fx (accession [id number]) Technologist Note: None. Additional: None. TECHNIQUE: CT of the head and cervical spine was performed withoutcontrast according to standard protocol. Reformatted axial, sagittal, and coronal images of the thoracic and lumbar spine were obtained by thetechnologist from a concurrently performed body CT and sent to the workstation for review. CT dose reduction technique was used, including AutomatedExposure Control. COMPARISON: No prior study is available for comparison at the time ofthis dictation. FINDINGS: Head: Some of the images are degraded due to motion history artifacts. Within this limitation: Accounting for the presence of motion artifact which reduces the sensitivity to detect subtle intracranial hemorrhage, no distinct acute intra- or extra-axial fluid collections are identified. The ventriclesare of normal size, shape, and morphology. The basilar cisterns are patent.No mass effect or midline shift is seen. The oneal-white matterdifferentiation is normal. No acute calvarial fracture is identified. The orbits appear normal. There is mild paranasal sinus disease. The mastoid air cells are clear. No soft tissue abnormality is identified. Cervical spine: Relative straightening of the cervical lordosis. Minimal dextrocurvatureof the cervicothoracic junction. The alignment is otherwise maintained. Vertebral bodies are normal in height without evidence of acutefracture. The craniocervical junction is normal. The intervertebral discs appear normal. No central canal stenosis is seen. The facets appear normal. The uncovertebral joints appear normal. No neural foraminal stenosis isseen. No soft tissue abnormality is identified. Thoracic spine: Trace dextrocurvature of the thoracic spine. The alignment is otherwise maintained. Vertebral bodies are normal in height without evidence ofacute fracture. The intervertebral discs appear normal. No central canal stenosis is seen. The facets appear normal. No neural foraminalstenosis is seen. No soft tissue abnormality is identified. Lumbar spine: Minimal levocurvature of the lumbar spine. The alignment is otherwise maintained. Vertebral bodies are normal in height without evidence ofacute fracture. The intervertebral discs appear normal. No central canalstenosis is seen. The facets appear normal. No neural foraminal stenosis is seen. Mild degenerative changes of the SI joints. No soft tissue abnormalityis identified. IMPRESSION: 1.No acute intracranial hemorrhage, midline shift, or significant mass effect. 2.No evidence of acute fracture in the cervical, thoracic, or lumbarspine. Please refer to separately dictated CT chest/abdomen/pelvis for further characterization of thoracic, intra-abdominal, and pelvic findings. Report dictated by Ernesto Burnett M.D. (resident assistant) 03/20/2024 5:22 AM Gregory Torrez MD have personally reviewed and interpretedthis examination/study. > Interpreting Provider: Gregory Rowell MD on 03/20/2024 9:58 AM Yolanda Love MD CT ORDERABLES * CT HEAD WO CONTRAST (03/20/2024 5:17 AM CDT) Anatomical Region Laterality Modality Head Computed Tomogra phy 03/20/2024 5:07 AM CDT Impressions 03/20/2024 9:58 AM CDT IMPRESSION: 1.No acute intracranial hemorrhage, midline shift, or significant mass effect. 2.No evidence of acute fracture in the cervical, thoracic, or lumbar spine. Please refer to separately dictated CT chest/abdomen/pelvis for further characterization of thoracic, intra-abdominal, and pelvic findings. Report dictated by Ernesto Burnett M.D. (resident assistant) 03/20/2024 5:22 AM Gregory Torrez MD have personally reviewed and interpreted this examination/study. > Interpreting Provider: Gregory Rowell MD on 03/20/2024 9:58 AM Narrative 03/20/2024 9:58 AM CDT PROCEDURE: CT HEAD WO CONTRAST, CT LUMBAR SPINE WO CONTRAST, CT THORACIC SPINE WO CONTRAST, CT CERVICAL SPINE WO CONTRAST, DATE/TIME OF EXAM: 03/20/2024 5:18 AM, LOCATION [facility] INDICATION: W17.89XA: Fall from height of greater than 3 feet ADDITIONAL CLINICAL INFORMATION: Ordering Provider Reason For Exam: r/o fx (accession [id number]), r/o ich (accession [id number]), r/o fx (accession [id number]), r/o fx (accession [id number]) Technologist Note: None. Additional: None. TECHNIQUE: CT of the head and cervical spine was performed without contrast according to standard protocol. Reformatted axial, sagittal, and coronal images of the thoracic and lumbar spine were obtained by the technologist from a concurrently performed body CT and sent to the workstation for review. CT dose reduction technique was used, including Automated Exposure Control. COMPARISON: No prior study is available for comparison at the time of this dictation. FINDINGS: Head: Some of the images are degraded due to motion history artifacts. Within this limitation: Accounting for the presence of motion artifact which reduces the sensitivity to detect subtle intracranial hemorrhage, no distinct acute intra- or extra-axial fluid collections are identified. The ventricles are of normal size, shape, and morphology. The basilar cisterns are patent. No mass effect or midline shift is seen. The oneal-white matter differentiation is normal. No acute calvarial fracture is identified. The orbits appear normal. There is mild paranasal sinus disease. The mastoid air cells are clear. No soft tissue abnormality is identified. Cervical spine: Relative straightening of the cervical lordosis. Minimal dextrocurvature of the cervicothoracic junction. The alignment is otherwise maintained. Vertebral bodies are normal in height without evidence of acute fracture. The craniocervical junction is normal. The intervertebral discs appear normal. No central canal stenosis is seen. The facets appear normal. The uncovertebral joints appear normal. No neural foraminal stenosis is seen. No soft tissue abnormality is identified. Thoracic spine: Trace dextrocurvature of the thoracic spine. The alignment is otherwise maintained. Vertebral bodies are normal in height without evidence of acute fracture. The intervertebral discs appear normal. No central canal stenosis is seen. The facets appear normal. No neural foraminal stenosis is seen. No soft tissue abnormality is identified. Lumbar spine: Minimal levocurvature of the lumbar spine. The alignment is otherwise maintained. Vertebral bodies are normal in height without evidence of acute fracture. The intervertebral discs appear normal. No central canal stenosis is seen. The facets appear normal. No neural foraminal stenosis is seen. Mild degenerative changes of the SI joints. No soft tissue abnormality is identified. Procedure Note Gregory Rowell MD - 03/20/2024 PROCEDURE: CT HEAD WO CONTRAST, CT LUMBAR SPINE WO CONTRAST, CTTHORACIC SPINE WO CONTRAST, CT CERVICAL SPINE WO CONTRAST, DATE/TIME OF EXAM: 03/20/2024 5:18 AM, LOCATION [facility] INDICATION: W17.89XA: Fall from height of greater than 3 feet ADDITIONAL CLINICAL INFORMATION: Ordering Provider Reason For Exam: r/o fx (accession [id number]), r/oich (accession [id number]), r/o fx (accession [id number]), r/o fx (accession [id number]) Technologist Note: None. Additional: None. TECHNIQUE: CT of the head and cervical spine was performed withoutcontrast according to standard protocol. Reformatted axial, sagittal, and coronal images of the thoracic and lumbar spine were obtained by thetechnologist from a concurrently performed body CT and sent to the workstation for review. CT dose reduction technique was used, including AutomatedExposure Control. COMPARISON: No prior study is available for comparison at the time ofthis dictation. FINDINGS: Head: Some of the images are degraded due to motion history artifacts. Within this limitation: Accounting for the presence of motion artifact which reduces the sensitivity to detect subtle intracranial hemorrhage, no distinct acute intra- or extra-axial fluid collections are identified. The ventriclesare of normal size, shape, and morphology. The basilar cisterns are patent.No mass effect or midline shift is seen. The oneal-white matterdifferentiation is normal. No acute calvarial fracture is identified. The orbits appear normal. There is mild paranasal sinus disease. The mastoid air cells are clear. No soft tissue abnormality is identified. Cervical spine: Relative straightening of the cervical lordosis. Minimal dextrocurvatureof the cervicothoracic junction. The alignment is otherwise maintained. Vertebral bodies are normal in height without evidence of acutefracture. The craniocervical junction is normal. The intervertebral discs appear normal. No central canal stenosis is seen. The facets appear normal. The uncovertebral joints appear normal. No neural foraminal stenosis isseen. No soft tissue abnormality is identified. Thoracic spine: Trace dextrocurvature of the thoracic spine. The alignment is otherwise maintained. Vertebral bodies are normal in height without evidence ofacute fracture. The intervertebral discs appear normal. No central canal stenosis is seen. The facets appear normal. No neural foraminalstenosis is seen. No soft tissue abnormality is identified. Lumbar spine: Minimal levocurvature of the lumbar spine. The alignment is otherwise maintained. Vertebral bodies are normal in height without evidence ofacute fracture. The intervertebral discs appear normal. No central canalstenosis is seen. The facets appear normal. No neural foraminal stenosis is seen. Mild degenerative changes of the SI joints. No soft tissue abnormalityis identified. IMPRESSION: 1.No acute intracranial hemorrhage, midline shift, or significant mass effect. 2.No evidence of acute fracture in the cervical, thoracic, or lumbarspine. Please refer to separately dictated CT chest/abdomen/pelvis for further characterization of thoracic, intra-abdominal, and pelvic findings. Report dictated by Ernesto Burnett M.D. (resident assistant) 03/20/2024 5:22 AM Gregory Torrez MD have personally reviewed and interpretedthis examination/study. > Interpreting Provider: Gregory Rowell MD on 03/20/2024 9:58 AM Yolanda Love MD CT ORDERABLES * XR KNEE RIGHT 3VW (03/20/2024 4:20 AM CDT) Anatomical Region Laterality Modality Lower Extremity Radiographic Heidi ging 03/20/2024 4:12 AM CDT Impressions 03/20/2024 7:41 AM CDT IMPRESSION: No acute fracture or dislocation. Report dictated by Ernesto Burnett MD (resident assistant). Todd Torrez MD have personally reviewed and interpreted this examination/study. > Interpreting Provider: Todd Tovar MD on 03/20/2024 7:41 AM Narrative 03/20/2024 7:41 AM CDT PROCEDURE: XR KNEE RIGHT 3VW, DATE/TIME OF EXAM: 03/20/2024 3:55 AM, LOCATION [facility] INDICATION: W17.89XA: Fall from height of greater than 3 feet ADDITIONAL CLINICAL INFORMATION: Ordering Provider Reason For Exam: r/o fx COMPARISON: None. FINDINGS: The osseous structures are intact and well aligned without acute fracture or dislocation. The knee joint space is preserved. No substantial joint effusion. Bone density and texture are normal. Procedure Note Todd Tovar MD - 03/20/2024 PROCEDURE: XR KNEE RIGHT 3VW, DATE/TIME OF EXAM: 03/20/2024 3:55 AM, LOCATION [facility] INDICATION: W17.89XA: Fall from height of greater than 3 feet ADDITIONAL CLINICAL INFORMATION: Ordering Provider Reason For Exam: r/o fx COMPARISON: None. FINDINGS: The osseous structures are intact and well aligned without acutefracture or dislocation. The knee joint space is preserved. No substantial joint effusion. Bone density and texture are normal. IMPRESSION: No acute fracture or dislocation. Report dictated by Ernesto Burnett MD (resident assistant). Todd Torrez MD have personally reviewed and interpreted this examination/study. > Interpreting Provider: Todd Tovar MD on 03/20/2024 7:41 AM Yolanda Love MD DIAGNOSTIC IMAGING O RDERABLES * XR PELVIS W RIGHT HIP 2VW (03/20/2024 4:07 AM CDT) Anatomical Region Laterality Modality Pelvis Radiographic Heidi ging 03/20/2024 4:10 AM CDT Impressions 03/20/2024 7:40 AM CDT IMPRESSION: No acute fracture or dislocation identified. Report dictated by Ernesto Burnett MD (resident assistant). Todd Torrez MD have personally reviewed and interpreted this examination/study. > Interpreting Provider: Todd Tovar MD on 03/20/2024 7:40 AM Narrative 03/20/2024 7:40 AM CDT PROCEDURE: XR PELVIS W RIGHT HIP 2VW, DATE/TIME OF EXAM: 03/20/2024 3:55 AM, LOCATION [facility] INDICATION: W17.89XA: Fall from height of greater than 3 feet ADDITIONAL CLINICAL INFORMATION: Ordering Provider Reason For Exam: r/o fx COMPARISON: None. FINDINGS: The osseous structures are intact and well aligned without acute fracture or dislocation. The hip joint space is preserved. Bone density and texture are normal. Procedure Note Todd Tovar MD - 03/20/2024 PROCEDURE: XR PELVIS W RIGHT HIP 2VW, DATE/TIME OF EXAM: 43:55 AM, LOCATION [facility] INDICATION: W17.89XA: Fall from height of greater than 3 feet ADDITIONAL CLINICAL INFORMATION: Ordering Provider Reason For Exam: r/o fx COMPARISON: None. FINDINGS: The osseous structures are intact and well aligned without acutefracture or dislocation. The hip joint space is preserved. Bone density andtexture are normal. IMPRESSION: No acute fracture or dislocation identified. Report dictated by Ernesto Burnett MD (resident assistant). I, Todd Tovar MD have personally reviewed and interpreted this examination/study. > Interpreting Provider: Todd Tovar MD on 03/20/2024 7:40 AM Yolanda Love MD DIAGNOSTIC IMAGING O RDERABLES * (ABNORMAL) CBC W AUTO DIFFERENTIAL (03/20/2024 3:47 AM CDT) Only the most recent of2 resultswithin the time period is included. WBC 5.3 4.0 - 10.7 x10E9/L 03/20/2024 4:08 AM [facility] RBC Count 4.69 3.90 - 5.20 x10E12/L 03/20/2024 4:08 AM [facility] Hemoglobin 13.6 11.9 - 15.8 g/dL 03/20/2024 4:08 AM [facility] Hematocrit 40.5 34.8 - 46.1 % 03/20/2024 4:08 AM [facility] MCV 86.4 80.0 - 98.0 fL 03/20/2024 4:08 AM [facility] MCH 29.0 26.7 - 33.6 pg 03/20/2024 4:08 AM [facility] MCHC 33.6 31.7 - 36.3 g/dL 03/20/2024 4:08 AM [facility] RDW-CV 12.5 11.3 - 14.8 % 03/20/2024 4:08 AM [facility] Platelet Count 323 150 - 420 x10E9/L 03/20/2024 4:08 AM [facility] MPV 9.2 7.8 - 11.4 fL 03/20/2024 4:08 AM [facility] Neutrophil % 40.5(L) 41.0 - 74.0 % 03/20/2024 4:08 AM [facility] Lymphocyte % 48.5(H) 17.0 - 47.0 % 03/20/2024 4:08 AM [facility] Monocyte % 7.4 3.0 - 11.0 % 03/20/2024 4:08 AM [facility] Eosinophil % 2.5 0.0 - 7.0 % 03/20/2024 4:08 AM [facility] Basophil % 0.9 0.0 - 1.6 % 03/20/2024 4:08 AM [facility] Immature Granulocytes % 0.2 0.0 - 1.0 % 03/20/2024 4:08 AM [facility] Neutrophil Absolute 2.15 1.60 - 7.50 x10E9/L 03/20/2024 4:08 AM [facility] Lymphocyte Absolute 2.57 1.00 - 4.40 x10E9/L 03/20/2024 4:08 AM [facility] Monocyte Absolute 0.39 0.15 - 1.00 x10E9/L 03/20/2024 4:08 AM [facility] Eosinophil Absolute 0.13 0.00 - 0.60 x10E9/L 03/20/2024 4:08 AM [facility] Basophil Absolute 0.05 0.00 - 0.13 x10E9/L 03/20/2024 4:08 AM [facility] Blood BLOOD SPECIMEN / Unknown Venipuncture / Unknown 03/20/2024 3:47 AM CDT 03/20/2024 3:55 AM CDT Yolanda Love MD LAB - HEMATOLOGY ORD ERABLES [facility] [address] [place] [address], [facility] [phone] * (ABNORMAL) COMPREHENSIVE METABOLIC PANEL (03/20/2024 3:47 AM CDT) BUN 9 7 - 26 mg/dL 03/20/2024 4:28 AM [facility] Creatinine 0.76 0.56 - 0.96 mg/dL 03/20/2024 4:28 AM [facility] Sodium 142 136 - 145 mmol/L 03/20/2024 4:28 AM [facility] Potassium 3.8 3.5 - 4.5 mmol/L 03/20/2024 4:28 AM [facility] Chloride 108(H) 98 - 107 mmol/L 03/20/2024 4:28 AM [facility] CO2 24 22 - 29 mmol/L 03/20/2024 4:28 AM [facility] Glucose 90 70 - 115 mg/dL 03/20/2024 4:28 AM [facility] Calcium 9.9 8.4 - 10.2 mg/dL 03/20/2024 4:28 AM [facility] Protein Total 8.2 6.0 - 8.3 g/dL 03/20/2024 4:28 AM [facility] Albumin 4.4 3.4 - 5.0 g/dL 03/20/2024 4:28 AM [facility] Bilirubin Total 0.2 0.2 - 1.2 mg/dL 03/20/2024 4:28 AM [facility] Alkaline Phosphatase 47 40 - 150 U/L 03/20/2024 4:28 AM [facility] ALT 24 5 - 55 U/L 03/20/2024 4:28 AM [facility] AST 19 5 - 34 U/L 03/20/2024 4:28 AM [facility] Anion Gap 10 6 - 16 03/20/2024 4:28 AM [facility] BUN/Creatinine Ratio 12 7 - 23 03/20/2024 4:28 AM [facility] Osmolality Calculated 292 275 - 295 mOsm/kg 03/20/2024 4:28 AM [facility] Albumin/Globulin Ratio 1.2 1.1 - 2.3 03/20/2024 4:28 AM [facility] eGFR by CKD-EPI >90 >=90 mL/min/1.7 3 m2 03/20/2024 4:28 AM [facility] Blood BLOOD SPECIMEN / Unknown Venipuncture / Unknown 03/20/2024 3:47 AM CDT 03/20/2024 3:55 AM CDT Yolanda Love MD LAB - CHEMISTRY ANA CASEY Performing Organization Address [facility] [employer] de Phone Number [address] [address], [facility] [phone] * HCG BETA BLOOD QUANTITATIVE (03/20/2024 3:47 AM CDT) [facility] Beta-hCG Total Quantitative <3 mIU/mL 03/20/2024 4:32 AM CDT [facility] Comment: HCG Numeric Result Interpretation: Non- Females: < 5 mIU/mL Post-Menopausal Females: < 7 mIU/mL This assay is cleared for use in the early detection of only. It is not approved for any other uses such as tumor marker screening, tumor marker monitoring, etc. and should not be used for any other purposes. Blood BLOOD SPECIMEN / Unknown Venipuncture / Unknown 03/20/2024 3:47 AM CDT 03/20/2024 3:55 AM CDT Yolanda Love MD LAB - CHEMISTRY ANA CASEY Performing Organization Address [facility] [employer] de Phone Number [address] [address], [facility] [phone] * (ABNORMAL) ALCOHOL ETHYL BLOOD (03/20/2024 3:47 AM CDT) Pathologist [facility] Ethanol (mg/dL) 182(H) <10 mg/dL 4:28 AM CDT [facility] Ethanol Calculated (g/dL) 0.182(H) <=0.010 g/dL 03/20/2024 4:28 AM CDT [facility] Blood BLOOD SPECIMEN / Unknown Venipuncture / Unknown 03/20/2024 3:47 AM CDT 03/20/2024 3:55 AM CDT Narrative [facility] - 03/20/2024 4:28 AM CDT Ethanol Interp <10: None Detected. Depression of LABORER MINE: >100 mg/dl Potentially Critical: >250 mg/dl Potentially Fatal >400 mg/dl Ethanol in the patient's blood will contribute to the osmolar gap. Ethanol's contribution to the osmolar gap can be estimated by dividing the concentration of ethanol in mg/dL by 4.6. This test is for clinical use only and does not equal a STEVE for legal purposes. Yolanda Love MD LAB - CHEMISTRY ORDDwaine CASE[facility] [address] [place] [address], [facility] [phone] * HCG URINE QUAL POCT NOTIFICATION (05/31/2020 1:30 PM CDT) Only the most recent of2 resultswithin the time period is included. Comment Notification Label Only - See Separate Report 05/31/2020 1:30 PM CDT [facility] Urine URINE / Unknown 0 12:01 PM CDT Tracie Burks MD LAB - URINALYSIS ORDERABLES Performing Organization Address [facility] Co de Phone Number [facility] [id number] [place] [address] * GROSS EXAM PATHOLOGY (STL) (05/31/2020 1:06 PM CDT) Case Report Surgical Pathology Report Case: [id number] Authorizing Provider: Tracie Burks MD Collected: 05/31/2020 01:06 PM Ordering Location: INTRAOP Received: 05/31/2020 02:27 PM Pathologist: Latasha Marie MD Specimen: Tonsil(s) 05/31/2020 3:52 PM CDT [facility] Final Diagnosis Gross diagnosis: Mcconnell tonsils. 05/31/2020 3:52 PM CDT [facility] Clinical History The patient is a 20-year-old woman with acute tonsillitis. 05/31/2020 3:52 PM CDT [facility] Gross Description Submitted fixed in formalin in one container for gross examination only, labeled with the patient's name, Clair Kennedy, and bilateral tonsils, are two egg-shaped, pink-badillo palatine tonsils measuring 3 x 2.5 x 1.2 cm and 2.6 x 2.2 x 1.4 cm, weighing 7 g combined. On cut surface, the tonsils have a cerebriform yellow-badillo appearance. No sections are taken. (MA/ns) 05/31/2020 3:52 PM CDT [facility] Embedded Images 05/31/2020 3:52 PM CDT [facility] Pathology/Cytology SPECIMEN FROM TONSIL / Unknown 05/31/2020 1:06 PM CDT 05/31/2020 2:27 PM CDT Comment:Pre-op diagnosis: Acute tonsillitis, unspecified etiology [J03.90] Tracie Burks MD LAB - PATHOLOGY/C YTOLOGY ORDERABLES Performing Organization Address City/State/[place] Phone Number [facility] [address] [place] [address] * ETT LINE PERFORMABLE (05/31/2020 1:03 PM CDT) Narrative Crow Cintron - 05/31/2020 1:03 PM CDT Crow Cintron MD 05/31/2020 1:04 PM Endotracheal Tube Placement: Patient Location: OR. Intubation Event Date/Time: 05/31/2020 1:01 PM Procedure: intubation ([id number]). Procedure Section: Sedation: under general anesthesia. Indications for Airway Management: anesthesia Procedure pretreatments used? No Induction: standard IV Patient Position: supine Mask Ventilation: easy. Blade Type: Missy Blade Size: 3 Laryngoscopy View: grade 1 (full cords) Tube: JOSE tube Placement: oral Tube type: cuff - inflated Tube Size (MM): 7.5 Depth of Insertion (CM): 22 Measured From: lips Cuff volume (mL): 2 Cuff inflation pressure (CM H20): 20 Cuff Inflated With: air Number of Attempts: 1. Ventilation between attempts: Yes. Placement Verified By: direct visualization, bilateral breath sounds, chest auscultation and CO2 monitor Tube secured with: adhesive tape. Difficult Airway? No. Procedure Start Time: 05/31/2020 1:01 PM. Procedure End Time: 05/31/2020 1:02 PM. Procedure Total Time: 1 minutes. Staff Section Anesthesia Provider: Reta Lei DO Provider #1: Crow Cintron MD, Performed the procedure. Reta Lei DO GENERAL ANESTHESIA ORDERABLES * HCG URINE QUALITATIVE - POCT (IP) INTERFACED (05/31/2020 12:04 PM CDT) Only the most recent of2 resultswithin the time period is included. HCG Qual Urine Negative Negative 05/31/2020 12:15 PM CDT [facility] Urine URINE / Unknown 05/31/2020 1 2:04 PM CDT 05/31/2020 12:15 PM CDT Tracie Burks MD LAB - POINT OF SC RE ORDERABLES Performing Organization Address City/State/[place] Phone Number [facility] [address] [place] [id number] * SARS-COV-2 (COVID-19) PRE-SURGICAL/PROCEDURE (05/28/2020 8:29 AM CDT) COVID-19 PCR Not detected Not detected, Invalid 05/28/2020 2:16 PM CDT [facility] Microbiology SPECIMEN FROM NASOPHARYNGEAL STRUCTURE / Unknown Collection / Unknown 05/28/2020 8:29 AM CDT 05/28/2020 8:43 AM CDT Narrative [facility] - 05/28/2020 2:16 PM CDT This nucleic acid amplification assay performance was validated by [facility]. This test has been authorized by the Food and Drug administration (FDA)under an Emergency Use Authorization (EUA). This test has been validated in accordance with the FDA's guidance document Policy for Diagnostic Testing in Laboratories Certified to perform High Complexity Testing under CLIA prior to Emergency Use Authorization for Coronavirus Disease-2019 during the Public Health Emergency issued on January 28, 2020. FDA independent review of this validation is pending. This test is only authorized for the duration of time the declaration that circumstances exist justifying the authorization of emergency use of in vitro diagnostic tests for detection of SARS-CoV-2 virus and/or diagnosis of COVID-19 infection under section 564(b)(1) of the Act, 21 U.S.C 360bbb-3 (b)(1), unless the authorization is terminated or revoked sooner. Tracie Burks MD LAB - MICROBIOLOG Y ORDERABLES Performing Organization Address [facility]/[place] Phone Number [facility] [address] [facility] [place] [address], [facility] [phone] * CULTURE FUNGUS OTHER+FUNGUS SMEAR (05/05/2019 3:58 PM CDT) Culture No fungus isolated JOEY 05/30/2019 4:27 AM CDT [facility] Fungus Smear No yeast or hyphae seen 05/30/2019 4:27 AM CDT [facility] Microbiology SPECIMEN FROM ABSCESS / Unknown Collection / Unknown 05/05/2019 3:58 PM CDT 05/05/2019 4:25 PM CDT Narrative [facility] - 05/30/2019 4:27 AM CDT Surgical Description: Left Parotid Abscess Tracie Burks MD LAB - MICROBIOLOG Y ORDERABLES Performing Organization Address [facility] Phone Number [facility] [address] [facility] [place] [address], [facility] [phone] * (ABNORMAL) CULTURE ABSCESS+GRAM STAIN (05/05/2019 3:58 PM CDT) Culture Light Streptococcus constellatus(A) JOEY 05/08/2019 7:13 AM CDT [facility] Gram Stain Moderate Polymorphonuclear cells 05/08/2019 7:13 AM CDT [facility] Gram Stain Moderate Gram-positive cocci 05/08/2019 7:13 AM CDT [facility] Microbiology SPECIMEN FROM ABSCESS / Unknown Collection / Unknown 05/05/2019 3:58 PM CDT 05/05/2019 4:25 PM CDT Narrative [facility] - 05/08/2019 7:13 AM CDT Surgical Description: Left Parotid Abscess Organism Antibiotic Method Susceptibility Streptococcus constellatus Ceftriaxone JOEY <=0.12 ug/mL: Susceptible Streptococcus constellatus Clindamycin JOEY >=1 ug/mL: Resistant Streptococcus constellatus Erythromycin JOEY >=8 ug/mL: Resistant Streptococcus constellatus Levofloxacin JOEY <=0.25 ug/mL: Susceptible Streptococcus constellatus Penicillin G JOEY <=0.06 ug/mL: Susceptible Streptococcus constellatus Vancomycin JOEY 0.5 ug/mL: Susceptible Tracie Burks MD LAB - MICROBIOLOG Y ORDERABLES Performing Organization Address City/[facility]/[place] Phone Number [facility] [address] [place] [address], [facility] [phone] * CULTURE AFB+SMEAR (05/05/2019 3:58 PM CDT) Culture No acid-fast bacillus isolated 06/13/2019 7:18 AM CDT [facility] AFB Smear No acid-fast bacilli seen 06/13/2019 7:18 AM CDT [facility] Microbiology SPECIMEN FROM ABSCESS / Unknown Collection / Unknown 05/05/2019 3:58 PM CDT 05/05/2019 4:25 PM CDT Narrative [facility] - 06/13/2019 7:18 AM CDT Surgical Description: Left Parotid Abscess Tracie Burks MD LAB - MICROBIOLOG Y ORDERABLES Performing Organization Address [facility] de Phone Number [facility] [address] [place] [address], [facility] [phone] * CULTURE ANAEROBE (05/05/2019 3:58 PM CDT) Culture No anaerobic organisms isolated JOEY 05/11/2019 12:37 PM CDT [facility] Microbiology SPECIMEN FROM ABSCESS / Unknown Collection / Unknown 05/05/2019 3:58 PM CDT 05/05/2019 4:25 PM CDT Narrative [facility] - 05/11/2019 12:37 PM CDT Surgical Description: Left Parotid Abscess Tracie Burks MD LAB - MICROBIOLOG Y ORDERABLES [facility] [address] [place] [address], [facility] [phone] * CT SOFT TISSUE NECK W CONTRAST (05/05/2019 1:26 PM CDT) Anatomical Region Laterality Modality Head Computed Tomogra phy 05/05/2019 1:44 PM CDT Impressions 05/05/2019 1:58 PM CDT Acute left parotitis with parotid abscess measuring 1.7 x 1.7 x 1.9 cm. Extensive inflammatory changes in the superficial and deep soft tissues of the left neck extending to bilateral submental region and suprahyoid neck. No sialolith. Reactive left cervical lymphadenopathy. The findings were discussed by Dr. Irene with Dr. Ortez at 1:53 PM on 05/05/2019. Reading Radiologist: Jessica Irene MD on 05/05/2019 at 1:58 PM Narrative 05/05/2019 1:[address] scan of the neck with intravenous contrast INDICATION:Facial swelling of the left face for a week, status post antibiotics, facial numbness, hearing problems COMPARISON:No prior studies are available for comparison. TECHNIQUE: CT scan of the neck was performed after administration of 95 mL of Isovue-300 intravenously according to standard protocol. DOSE: CTDIvol: 36.73 mGy, DLP: 1049.92 mGy-cm The reported CTDIvol (mGy) and DLP (mGy-cm) values are generated from scan acquisition factors based on a 32 cm body phantom or 16 cm head phantom and may underestimate or overestimate the actual patient dose based on patient size and other factors. FINDINGS: There is marked swelling and hyperenhancement of the left parotid gland compatible with acute peritonitis. An irregularly-shaped fluid collection is seen in the superficial lobe of the parotid gland compatible with intraparotid abscess. The dominant component measures 1.7 x 1.7 cm in transaxial dimensions and 1.9 cm in height. No calcified stone is seen in the parotid gland or in the parotid duct. There is marked swelling of the surrounding superficial and deep soft tissues with fat infiltration and nonorganized fluid extending inferiorly into the submental space and upper neck. There are multiple enlarged left cervical lymph nodes, reactive. The major cervical vessels are patent. The airway is unremarkable. There is no significant osseous finding. Limited evaluation of the intracranial contents is within normal limits. The paranasal sinuses and mastoid cavities are aerated. The orbits are unremarkable. Procedure Note Jessica Irene MD - 05/05/2019 CT scan of the neck with intravenous contrast INDICATION:Facial swelling of the left face for a week, status post antibiotics, facial numbness, hearing problems COMPARISON:No prior studies are available for comparison. TECHNIQUE: CT scan of the neck was performed after administration of 95 mL of Isovue-300 intravenously according to standard protocol. DOSE: CTDIvol: 36.73 mGy, DLP: 1049.92 mGy-cm The reported CTDIvol (mGy) and DLP (mGy-cm) values are generated from scan acquisition factors based on a 32 cm body phantom or 16 cm head phantom and may underestimate or overestimate the actual patient dose based on patient size and other factors. FINDINGS: There is marked swelling and hyperenhancement of the left parotid gland compatible with acute peritonitis. An irregularly-shaped fluid collection is seen in the superficial lobe of the parotid gland compatible with intraparotid abscess. The dominant component measures 1.7 x 1.7 cm in transaxial dimensions and 1.9 cm in height. No calcified stone is seen in the parotid gland or in the parotid duct. There is marked swelling of the surrounding superficial and deep soft tissues with fat infiltration and nonorganized fluid extending inferiorly into the submental space and upper neck. There are multiple enlarged left cervical lymph nodes, reactive. The major cervical vessels are patent. The airway is unremarkable. There is no significant osseous finding. Limited evaluation of the intracranial contents is within normal limits. The paranasal sinuses and mastoid cavities are aerated. The orbits are unremarkable. IMPRESSION Acute left parotitis with parotid abscess measuring 1.7 x 1.7 x 1.9 cm. Extensive inflammatory changes in the superficial and deep soft tissues of the left neck extending to bilateral submental region and suprahyoid neck. No sialolith. Reactive left cervical lymphadenopathy. The findings were discussed by Dr. Irene with Dr. Ortez at 1:53 PM on 05/05/2019. Reading Radiologist: Jessica Irene MD on 05/05/2019 at 1:58 PM Kaushik Ortez DO CT ORDERABLES * (ABNORMAL) BASIC METABOLIC PANEL (CALCIUM TOTAL) (05/05/2019 12:43 PM CDT) Glucose 98 70 - 105 mg/dL 05/05/2019 1:11 PM CDT [facility] Sodium 136 136 - 145 mmol/L 05/05/2019 1:11 PM CDT [facility] Potassium 4.0 3.5 - 5.1 mmol/L 05/05/2019 1:11 PM CDT [facility] Chloride 99 98 - 107 mmol/L 05/05/2019 1:11 PM CDT [facility] CO2 26 22 - 29 mmol/L 05/05/2019 1:11 PM T [facility] Calcium 10.58(H) 9.08 - 10.48 mg/dL 05/05/2019 1:11 PM T [facility] Anion Gap 11 5 - 20 mmol/L 05/05/2019 1:11 PM T [facility] BUN 6.3 5.3 - 18.7 mg/dL 05/05/2019 1:11 PM T [facility] Creatinine 0.79 0.61 - 1.07 mg/dL 05/05/2019 1:11 PM T [facility] eGFR by MDRD >60 >60 mL/min/1.7 3m2 05/05/2019 1:11 PM T [facility] eGFR by MDRD >60 >60 mL/min/1.7 3m2 05/05/2019 1:11 PM CDT [facility] Blood BLOOD SPECIMEN / Unknown Venipuncture / Unknown 05/05/2019 12:43 PM CDT 05/05/2019 12:56 PM CDT Kaushik Ortez DO LAB - CHEMISTRY ANA CASE[facility] Organization Address City/State/ZIP Co de Phone Number [facility] [address] [place] [address] * NM BONE SCAN WHOLE BODY (10/01/2017 12:39 PM CDT) Anatomical Region Laterality Modality Abdomen Nuclear Medicine 10/01/2017 12:5 7 PM CDT Impressions 10/01/2017 4:57 PM CDT 1. Physiologic biodistribution of the radiotracer throughout the skeleton. 2. No evidence of fracture or abnormal focal lesions. Dictated by Ross Ovalle on 10/01/2017 4:00 PM [place], have personally reviewed the images and I agree with this report. Narrative 10/01/2017 4:57 PM CDT Whole Body Bone Scan HISTORY: 17 year old female with 6 weeks of left sided low back pain. TECHNIQUE: The patient was injected with 18.5 mCi of uaezsfuyet85-h MDP IV in the left AC. Anterior and posterior whole body images were obtained after 3 hours. Additional SPECT/CT images of the lumbosacral area were also obtained. FINDINGS: There is physiologic biodistribution of the radiotracer in the skeleton and soft tissue. There is increased uptake in the growing epiphyseal plates in the upper and lower extremities as well as iliac crests bilaterally. There is no abnormal focal increased uptake throughout the skeleton. SPECT/CT images of the lumbar and pelvic region were unremarkable. Procedure Note [place] MD - 10/01/2017 Whole Body Bone Scan HISTORY: 17 year old female with 6 weeks of left sided low back pain. TECHNIQUE: The patient was injected with 18.5 mCi of eqnhzrmevw16-c MDP IV in the left AC. Anterior and posterior whole body images were obtained after 3 hours. Additional SPECT/CT images of the lumbosacral area were also obtained. FINDINGS: There is physiologic biodistribution of the radiotracer in the skeleton and soft tissue. There is increased uptake in the growing epiphyseal plates in the upper and lower extremities as well as iliac crests bilaterally. There is no abnormal focal increased uptake throughout the skeleton. SPECT/CT images of the lumbar and pelvic region were unremarkable. IMPRESSION 1. Physiologic biodistribution of the radiotracer throughout the skeleton. 2. No evidence of fracture or abnormal focal lesions. Dictated by Ross Ovalle on 10/01/2017 4:00 PM [place], have personally reviewed the images and I agree with this report. Mikael Khan MD NM ORDERABLES * XR SCOLIOSIS 2VW (09/21/2017 2:29 PM CDT) Anatomical Region Laterality Modality Radiographic Heidi ging 09/21/2017 3:25 PM CDT Impressions 09/21/2017 4:08 PM CDT No scoliosis. Report dictated by Kiet Gordon MD (resident assistant). I, Ariel Coleman, have personally reviewed the images and I agree with this report. Narrative 09/21/2017 4:08 PM CDT EXAMINATION: XR ENTIRE SPINE, 2 views HISTORY: Low back pain COMPARISON: Comparison is made with a study from same day lumbar spine x-ray. FINDINGS: Alignment is normal in the entire spine without evidence of scoliosis. Normal kyphosis of thoracic spine with normal lordosis of lumbar spine. Disc spaces are grossly maintained. Previously described L4 transverse process deformity is not well-visualized in this study. There is gaseous distention of the stomach with elevation of the left hemidiaphragm. There are 12 rib-bearing vertebra in the thoracic spine and 5 nonrib-bearing vertebra in the lumbar spine. Procedure Note Ariel Coleman MD - 09/21/2017 EXAMINATION: XR ENTIRE SPINE, 2 views HISTORY: Low back pain COMPARISON: Comparison is made with a study from same day lumbar spine x-ray. FINDINGS: Alignment is normal in the entire spine without evidence of scoliosis. Normal kyphosis of thoracic spine with normal lordosis of lumbar spine. Disc spaces are grossly maintained. Previously described L4 transverse process deformity is not well-visualized in this study. There is gaseous distention of the stomach with elevation of the left hemidiaphragm. There are 12 rib-bearing vertebra in the thoracic spine and 5 nonrib-bearing vertebra in the lumbar spine. IMPRESSION No scoliosis. Report dictated by Kiet Gordon MD (resident assistant). Ariel Torrez, have personally reviewed the images and I agree with this report. Mikael Khan MD DIAGNOSTIC IMAGING O RDERABLES * XR LUMBAR SPINE SINGLE VIEW (09/21/2017 2:29 PM CDT) Anatomical Region Laterality Modality Spine Radiographic Heidi ging 09/21/2017 2:43 PM CDT Impressions 09/21/2017 2:46 PM CDT 1. Deformity of right L4 transverse process suggesting old injury. 2. Right thoracolumbar scoliosis, however, this was not present on entire spine study suggesting that this is positional. 3. Otherwise grossly negative rotated film for osseous or normality. Narrative 09/21/2017 2:46 PM CDT Lumbar spine, oblique view September 21, 2017 HISTORY: Back pain Single oblique view is submitted. No pars defect is demonstrated. There is a deformity of the right L4 transverse process. It is depressed. This may represent old injury. Large stool is present within the colon. There is a right thoracolumbar scoliosis. There is rotation of the lumbar vertebra. Grossly, the pedicles are intact. Procedure Note Ariel Coleman MD - 09/21/2017 Lumbar spine, oblique view September 21, 2017 HISTORY: Back pain Single oblique view is submitted. No pars defect is demonstrated. There is a deformity of the right L4 transverse process. It is depressed. This may represent old injury. Large stool is present within the colon. There is a right thoracolumbar scoliosis. There is rotation of the lumbar vertebra. Grossly, the pedicles are intact. IMPRESSION 1. Deformity of right L4 transverse process suggesting old injury. 2. Right thoracolumbar scoliosis, however, this was not present on entire spine study suggesting that this is positional. 3. Otherwise grossly negative rotated film for osseous or normality. Mikael Khan MD [facility]ST[facility] Care Teams [employer] Tech Relationship Specialty Start Date End Date Angle Saul MD [address] [address] PCP - General Pediatrics 09/21/17
--- OUTSIDE RECORDS SUMMARY | 2025-01-06 08:22 | XMS_ITS | Referral Summary ---
Author Organization [facility] Address [address] [place] [address] Care Team Providers Care Cash Register Balancer Name Role Phone Agustin Campoverde MD Primary Care Prov ider Encounters Date Type Department Care Team Description 01/05/2025 Telephone [facility] Gastroenterology [address] [place] [address] Medical Office Building [address] [address] Alyssa Graves RN 12/07/2024 Telephone [facility] Gastroenterology [address] [place] [address] Medical Office Building [address] [address] Destinee Roper GI Pre Procedure Assessment (Colonoscopy) 12/06/2024 10:45 AM CAMERA REPAIRER Office Visit [facility] Gastroenterology [address] [place] [address] Office Building [address] [address] Koki Smith MD Rectal bleeding (Primary Dx); Elevated transaminase level; Irritable bowel syndrome with diarrhea; Gastroesophageal reflux disease without esophagitis; BMI 37.0-37.9, adult; Lactose intolerance from Last 3 Months Allergies Active Allergy Reactions Criticality Noted Date Comments Amoxicillin Cefdinir Clarithromycin Sulfa (Sulfonamide Antibiotics) Chest tightness Medium 04/30/2023 Medications escitalopram (LEXAPRO) 20 mg tablet 3 Active montelukast (SINGULAIR) 10 mg tablet 3 Active fexofenadine (LACY) 180 mg tablet Take 1 tablet (180 mg total) by mouth 8 Active albuterol HFA (PROVENTIL HFA,VENTOLIN HFA,PROAIR HFA) 90 mcg/actuation inhaler Inhale 2 puffs every 4 (four) hours 0 Active dicyclomine (BENTYL) 10 mg capsuleIndicati ons:Chronic diarrhea Take 1 capsule (10 mg total) by mouth 4 (four) times a day as needed (abdominal pain, diarrhea) 90 capsule 11 3 Active Slynd tablet tablet Take 1 each (4 mg total) by mouth daily 3 Active omeprazole (PriLOSEC) 20 mg capsule Take 1 capsule (20 mg total) by mouth daily 90 capsule 3 5 12/06/19 26 Active sodium, potassium & mag sulfates (Suprep Bowel Prep Kit) 17.5-3.13-1.6 gram recon solnIndications :Bowel Evacuation Please follow instructions provided by the office. 354 mL 5 Active Active Problems Problem Noted Date Diagnosed Date Elevated transaminase level 12/06/2024 Rectal bleeding 12/06/2024 Immunizations Name Administration Dates Next Due PPD TEST 04/30/2023 Social History Tobacco Use Types Packs/Day Years Used Date Smoking Tobacco: Never Smokeless Tobacco: Never Tobacco Cessation:Counseling Given: Not Answered Comments Unknown Sex and Gender Information Value Date Recorded Sex Assigned at Not on file Legal Sex Female 3:27 AM CAMERA REPAIRER Gender Identity Not on file Sexual Orientation Not on file Last Filed Vital Signs Vital Sign Reading Time Taken Comments Blood Pressure 122/81 12/06/2024 10:44 AM CAMERA REPAIRER Pulse 100 12/06/2024 10:44 AM CAMERA REPAIRER Temperature 36.3 C (97.3 F) 12/06/2024 10:44 AM CAMERA REPAIRER Respiratory Rate - - Oxygen Saturation 97% 04/30/2023 3:58 PM CDT Inhaled Oxygen Concentration - - Weight 110.2 kg (243 lb) 12/06/2024 10:44 AM CAMERA REPAIRER Height 172.7 cm (5' 8 ) 12/06/2024 10:44 AM CAMERA REPAIRER Body Mass Index 36.95 12/06/2024 10:44 AM CAMERA REPAIRER Plan of Treatment Upcoming Encounters Date Type Department Care Team (Late st Contact Info) Description 01/30/2025 8:00 AM CAMERA REPAIRER Hospital Encounter [facility] Endoscopy [address] [address] Koki Smith MD [address] [place] [address] 01/30/2025 8:00 AM CAMERA REPAIRER - 01/30/2025 8:45 AM CAMERA REPAIRER Surgery [facility]oscopy [address] [place] [address] Koki Smith MD [address] [place] [address] COLONOSCOPY Scheduled Procedures Name Priority Associated Diagnoses Date/Ti me COLONOSCOPY Elevated transaminase level Rectal bleeding 01/30/2025 8:00 AM CAMERA REPAIRER Insurance [facility] Care Teams Cash Register Balancer Relationship Specialty Start Date End Date Agustin Campoverde MD [address] [place] [address] PCP - General Family Medicine 02/09/24
--- OUTSIDE RECORDS SUMMARY | 2025-01-06 08:22 | XMS_ITS | Clinical Summary ---
Author Organization [facility] Address [address] [place] [address] Care Team Providers Care Weigher Packing Name Role Phone Agustin Campoverde MD Primary Care Prov ider Allergies Active Allergy Reactions Criticality Noted Date [...] Elevated transaminase level 12/06/2024 Rectal bleeding 12/06/2024 Encounters Date Type Department Care Team Description 01/05/2025 Telephone [facility] Gastroenterology [facility] Medical Office Building 1 [address] [place] [phone] Alyssa Graves RN 12/07/2024 Telephone [facility] Gastroenterology [facility] Office Building 1 [address] [place] [phone] Destinee Roper GI Pre Procedure Assessment (Colonoscopy) 12/06/2024 10:45 AM COMB TENDER Office Visit 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 Family History Medical History Relation Name Comments Alcohol abuse Other Family history of Alcoholism; Cancer Other Family history of Cancer, unknown; Hypertension Other Family history of Hypertension; Lung disease Other Family history of Lung problems; Stroke Other Family history of Stroke; Relation Name Status Comments Other Social History Tobacco Use Types Packs/Day Years Used Date Smoking Tobacco: Never Smokeless Tobacco: Never Tobacco Cessation:Counseling Given: Not Answered Comments Unknown Sex and Gender Information Value Date Recorded Sex Assigned at Not on file Legal Sex Female 3:27 AM COMB TENDER Gender Identity Not on file Sexual Orientation Not on file Obstetrics History Last Filed Vital Signs Vital Sign Reading Time Taken Comments Blood Pressure 122/81 12/06/2024 10:44 AM COMB TENDER Pulse 100 12/06/2024 10:44 AM COMB TENDER Temperature 36.3 C (97.3 F) 12/06/2024 10:44 AM COMB TENDER Respiratory Rate - - Oxygen Saturation 97% 04/30/2023 3:58 PM CDT Inhaled Oxygen Concentration - - Weight 110.2 kg (243 lb) 12/06/2024 10:44 AM COMB TENDER Height 172.7 cm (5' 8 ) 12/06/2024 10:44 AM COMB TENDER Body Mass Index 36.95 12/06/2024 10:44 AM COMB TENDER Plan of Treatment Upcoming Encounters Date Type Department Care Team (Late st Contact Info) Description 01/30/2025 8:00 AM COMB TENDER Hospital Encounter [facility] Endoscopy [address] [address] Koki Smith MD [address] [place] [address] 01/30/2025 8:00 AM COMB TENDER - 01/30/2025 8:45 AM COMB TENDER Surgery [facility] Endoscopy [address] [address] Koki Smith MD [address] [facility] [place] [address] COLONOSCOPY Scheduled Procedures Name Priority Associated Diagnoses Date/Ti me COLONOSCOPY Elevated transaminase level Rectal bleeding 01/30/2025 8:00 AM COMB TENDER Health Maintenance Due Date Last Done Comments Cervical Cancer Screening 2000 Depression Screening 2000 Hepatitis C Screening 2000 Pneumococcal vaccine <65 (1 of 1 - PPSV23 or PCV20) 07/07/2006 05/12/2006, 02/04/2001, 2000, Additional history exists Regular Well Visit/Exam 18-64 2018 DTaP/Tdap/Td Vaccine (7 - Td or Tdap) 04/26/2020 04/26/2010, 04/14/2005, 05/18/2001, Additional history exists Covid-19 Vaccine (5 - 2023-2 5 season) 2024 12/03/2022, 11/17/2021, 03/02/2021, Additional history exists Influenza Vaccine (#1) 2024 , 11/17/2021, 08/30/2020, Additional history exists Hepatitis B Screening Completed 02/04/2001 , 2000, 2000 Varicella Vaccines Completed 04/08/2011, 02/04/2001 HPV Vaccines Completed 10/07/2013, 05/2013, 09/28/2012 Insurance [facility]/PPO Address: [address] [address] [place] [address] Care Teams Weigher Packing Relationship Specialty Start Date End Date Agustin Campoverde MD [address] [place] [address] PCP - General Family Medicine 02/09/24
--- OUTSIDE RECORDS SUMMARY | 2025-01-06 08:22 | XMS_ITS | Encounter Summary ---
Author Organization [facility] Address [address] [place] [address] Phone Care Team Providers Care Cable Splicer Assistant Name Role Phone Agustin Campoverde MD Primary Care Prov ider Reason for Referral * Consultation (Routine) - Pending Review Specialty Diagnoses / Procedures Referred By Johanna santiago Referred To Contact Gastroenterology Diagnoses Abnormal liver enzymes Koki Smith MD [facility] [address] [address] Phone: tel: fax: [facility] (All Locations) Referral ID Status Reason Start Date Expiration Date Visits Requested Visits Authorized [id number] Pending Review Specialty Services Required 01/05/2025 02/04/2026 1 1 Question Answer Process Instructions: THE AMBULATORY REFERRAL TO GASTROENTEROLOGY IS NOT AN ORDER FOR A PROCEDURE (I.E. EGD, COLONOSCOPY.) USE THE DIRECT SCHEDULING CASE REQUEST ORDER (GI50) IF THE PATIENT REQUIRES A PROCEDURE TO BE PERFORMED. Please select the performing region: [facility] (All Locations) [[id number]] Service Line: Hepatology # of visits: 1 [employer] SPECIALIST Encounter Details Date Type Department Care Team (Late st Contact Info) Description 01/05/2025 Telephone [facility] Gastroenterology [address] [place] [address] Medical Office Building 1 [address] [place] [address] Alyssa Graves, RN Social History Tobacco Use Types Packs/Day Years Used Date Smoking Tobacco: Never Smokeless Tobacco: Never Comments Unknown Sex and Gender Information Value Date Recorded Sex Assigned at Not on file Legal Sex Female 3:27 AM [employer]ITAL [employer] SPECIALIST Gender Identity Not on file Sexual Orientation Not on file documented as of this encounter Miscellaneous Notes * Telephone Encounter - Alyssa Graves RN - 01/05/2025 3:06 PM CST Called patient to notify of recent lab results. Informed about referral to hepatology and she wouldreceive a phone call for scheduling. Explained to patient that there was not a definitive diagnosisof hepatitis and that doctor wants to explore all options for elevated lab. [employer] SPECIALIST * Telephone Encounter - Alyssa Graves RN - 01/05/2025 3:02 PM CST ----- Message from Koki Smith MD sent at 01/05/2025 1:01 PM [employer] SPECIALIST ----- Could you let Clair know that I received results of her blood work drawn at [facility] on 12/28/24? Her repeat liver tests are normal. There is one test that came back mildly elevated which is an actin antibody (it sounds like this is what this particular lab runs in place of a smooth muscle antibody.) This is of unclear significance but does raise the possibility of autoimmune hepatitis. Given this, could we place a hepatology referral? Thanks! [employer] SPECIALIST documented in this encounter Plan of Treatment Upcoming Encounters Date Type Department Care Team (Late st Contact Info) Description 01/30/2025 8:00 AM [employer]ITAL [employer] SPECIALIST Hospital Encounter [facility] Endoscopy [address] [address] Koki Smith MD [address] [place] [address] 01/30/2025 8:00 AM [employer] SPECIALIST - 01/30/2025 8:45 AM [employer] SPECIALIST Surgery [facility] Endoscopy [address] [address] Koki Smith MD [address] [place] [address] COLONOSCOPY Scheduled Procedures Name Priority Associated Diagnoses Date/Ti me COLONOSCOPY Elevated transaminase level Rectal bleeding 01/30/2025 8:00 AM [employer]ITAL [employer] SPECIALIST Scheduled Referrals Name Type Priority Associated Diagnoses Order Schedule Ambulatory referral to Gastroenterology Outpatient Referral Routine Abnormal liver enzymes Expected: 01/19/2025 (Approximate), Expires: 01/05/2026 documented as of this encounter Visit Diagnoses Diagnosis Elevated transaminase level Rectal bleeding Hemorrhage of rectum and anus Abnormal liver enzymes- Primary Elevated transaminase level Rectal bleeding Hemorrhage of rectum and anus documented in this encounter Care Teams Cable Splicer Assistant Relationship Specialty Start Date End Date Agustin Campoverde MD [address] [place] [address] PCP - General Family Medicine 02/09/24 documented as of this encounter
== END 2025-01-06 08:16 | disposition home or self-care (01) ==
LOC: ANHIMG 08:16
PROVIDERS: PCP Nurse Practitioner Obstetrics & Gynecology; Visit Provider Nurse Practitioner Obstetrics & Gynecology
DX: N63.0 Unspecified lump in unspecified breast (principal); R92.8 Other abnormal and inconclusive findings on diagnostic imaging of breast
CPT/HCPCS: 76642

== ENCOUNTER 2025-09-04 21:00 | Emergency (ER) | payer OTHER, SELFPAY ==
--- OUTSIDE RECORDS SUMMARY | 2023-02-24 03:50 | XMS_ITS | Continuity of Care Document ---
Author Organization [email or web address] Address [address] [place] [address] Phone Care Team Providers Care Caddy Master Name Role Phone Deon Larson MD Unavailable Unavailable Allergies, Adverse Reactions, Alerts Substance Reaction Status Criticality POTASSIUM CLAVULANATE hives Active No Inf ormation AMOXICILLIN TRIHYDRATE hives Active No In formation cefdinir hives Active No Information clarithromycin flat rash Active No Informatio n Medications Medication Instructions Dosage Effective Dates (start - stop) Status Comments montelukast 10 mg tablet TAKE 1 TABLET BY MOUTH EVERY DAY IN THE EVENING - Active albuterol sulfate HFA 90 mcg/actuation aerosol inhaler inhale 2 puff by inhalation route every 4 - 6 hours as needed 180 MCG - Active famotidine 20 mg tablet take 1 tablet by oral route every day as needed 20 MG - Active Pataday Twice Daily Relief 0.1 % eye drops instill 1 drop by ophthalmic route 2 times every day into affected eye(s) at an interval of 6 to 8 hours 1.00 drop - Active Flonase 50 mcg/actuation nasal spray,suspension spray 1 - 2 spray by intranasal route every day in each nostril 50 MCG - Active fexofenadine 180 mg tablet take 1 tablet by oral route every morning 180 MG - Active Zoloft 25 mg tablet take 75mg a day as prescribed - Active MONTELUKAST SOD 10 MG TABLET TAKE 1 TABLET BY MOUTH EVERY DAY IN THE EVENING - No Longer Active Procedures Procedure Date HEALTH RISK ASSESSMENT, PATIENT-FOCUSED OFFICE [id number] HEALTH RISK ASSESSMENT, PATIENT-FOCUSED OFFICE [id number] BODY MASS INDEX DOCD SYST BP LT 130 MM HG DIAST BP 80-89 MM HG Advance Directives Directive Yes / No Effective Date File Name No Information Encounters Encounter Description Practice Location Reason(s) For Visit Diagnoses Date Provider Providers Copied on Encounter [email or web address], [address], [place], [place], [id number] , tel: [phone] [facility] [place] No Information 3 Neo Chav[address]. [address] [place] [address], [id number] , . tel: [phone] [email or web address], [address], [place], [place], [address] , tel: [phone] [facility] [place] No Information 3 Neo Chavarria. [address] [place] [address], [id number] , . tel: [phone] OFFICE [facility] [email or web address], [address], [place], [place], [address] , tel: [phone] [facility] [place] asthma (chief complaint) Asthma-con trol (chief complaint) allergies (chief complaint) GERD (chief complaint) Mild persistent asthma, uncomplicatedSeason al allergic rhinitis due to pollenGastroesophag eal reflux disease, unspecified whether esophagitis present 2 Neo Chav[address]. [address], [id number] , . tel: [phone] Referring Provider: Deon Larson [address] [place] [address], [address] . tel:[phone] OFFICE HLDHO-IHA[facility]HW TAILED [email or web address], [address], [place], [place], [id number] , tel: [phone] [facility] [place] asthma (chief complaint) Asthma-con trol (chief complaint) allergies (chief complaint) Seasonal allergic rhinitis due to pollenModerate persistent asthma, uncomplicatedAcute atopic conjunctivitis, bilateral Hugo- 0 Neo Chavarria. [address], [id number] , . tel: [phone] Referring Provider: Angle Saul, [address] [facility] [address], [place], [address]. tel:[phone] [facility] [employer], [address], [place], [place], [address] , tel: [phone] [facility] asthma (chief complaint) Asthma-con trol (chief complaint) allergies (chief complaint) Mild intermittent asthma, uncomplicatedSeason al allergic rhinitis due to pollenAcute atopic conjunctivitis, bilateral 9 Neo Chavarria. [address], [id number] , . tel: [phone] Referring Provider: Angle Saul, [address] [facility] [address], [place], [address]. tel:[phone] [email or web address], [address], [place], [place], [address] , tel: [phone] [facility] [place] Seasonal allergic rhinitis due to pollenMild intermittent asthma without complicationClearsky [facility] allergic rhinitis due to other allergic trigger 8 Neo Chavarria. [address], [id number] , [place]. tel: [phone] Referring Provider: Angle Saul, [address] [facility] [address], [place], [address]. tel:[phone] [facility] [employer], [address], [place], [place], [id number] , tel: [phone] [facility] Mild intermittent asthma without complicationSeasona l allergic rhinitis due to pollenAcute atopic conjunctivitis, bilateral Feb [address] [facility], [address], [id number] , . tel: [phone] Referring Provider: Angle Saul [address] [facility] [address], [place], [address]. tel:[phone] [facility], [address], [place], [place], [address] , tel: [phone] [facility] Shortness of breathSeasonal allergic rhinitis due to pollenNon-seasonal allergic rhinitis due to other allergic trigger Jul- Neo Chavarria. [address] [facility], [facility] [address], [place], [id number] , . tel: [phone] Referring Provider: Angle Saul [address] [facility] [address], [place], [address]. tel:[phone] Family History Family Member Type Diagnosis Age At Onset Mother Problem (finding) asthma Mother Problem (finding) Allergies Father Problem (finding) Allergies Maternal uncle Problem (finding) Allergies Payers Payer name Insurance type Covered libertarian ID Dior rosales(s) [facility] [id number] Social History Type Description Quantity Date Captured Comments Alcohol Use Details Unknown Caffeine Use Details Unknown Tobacco Use Status No Information Smoking Status No Information Sex Female Chief Complaint And Reason For Visit No Information Reason For Referral Reason For Referral No Information History Of Present Illness Encounter Date Complaint History Of Prese nt Illness allergies Asthma-control Clair was seen t summer for asthma management. Her asthma is classified as Mild Persistent.Since Her last visit for asthma control on 05/16/2020, She has had asthma related:-hospitalizations: NO-ER/Urgent care visits: NO-oral steroids: NO-rescue inhaler use: YES-Missed school/work: NOAsthma Control Test score: 241. Unlimited activity: None of the time (5)2. Caused shortness of breath: Not at all (5)3. Interrupted sleep: Once or twice (4)4. How often using rescue med: Not at all (5)5. Personal rating of control: Completely controlled (5)The asthma is Well Controlled.Environmental exposure/control:Smoker: NOTobacco exposure: YESPets/animals: YESSpirometry was last performed on 04/20/2019. asthma GERD (comments) Famotidine 20 mg qd prn acid reflux symptoms. GERD asthma (comments) I spoke to the patient via [facility] Telehealth program.Last seen 05/16/20 and before that on 04/20/19.Some cough at night with weather changes recently and may also be a result of being off the Montelukast in allergy season.Would like to restart Montelukast for this upcoming allergy season but will remain off the Symbicort for now. No smoke exposures at school. No COVID infections (even though college roommates all had it) and has been vaccinated and boosted. Has occ. reflux that started summer 2018 after antibiotics, and still has Famotidine to use as needed. PMH:spring had an increase in cough that was worse with outside exposures.Added Montelukast (04/20/19) for help with asthma and allergy symptoms and did well, but then ran out in 09/19 (no interim visits)At that time also saw Renita Whitman) who added Symbicort (160/4.5) BID in fall 2018 after return of cough. Discontinued the Symbicort in the summer 2020 and has had not noticed any increase in asthma symptoms. allergies (comments) Allergens: TREES, GRASS, and COCKROACH dander only (08/07/16)Usually has increase in rhinitis and ocular symptoms in March On Fexofenadine daily since 01/19 (and just restarted a month ago). Usually able to stop in late summer.Occ. use of Pataday OTC bid . 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 allergies Asthma-control Clair was seen jack wheeler for asthma management. Her asthma is classified as Mild Persistent.Since Her last visit for asthma control on 04/20/2018, She has had asthma related:-hospitalizations: NO-ER/Urgent care visits: NO-oral steroids: NO-rescue inhaler use: YES-Missed school/work: NOAsthma Control Test score: 251. Unlimited activity: None of the time (5)2. Caused shortness of breath: Not at all (5)3. Interrupted sleep: Not at all (5)4. How often using rescue med: Not at all (5)5. Personal rating of control: Completely controlled (5)The asthma is Well Controlled.Environmental exposure/control:Smoker: NOTobacco exposure: YESPets/animals: YESSpirometry was last performed on 04/20/2019. Results - WITHIN NORMAL LIMITS. asthma (comments) Last seen 04/20 and before this on 04/20/18 Last spring (2018) with increase in cough that was worse after outside exposures.Added Montelukast at last visit daily for help with asthma and allergy symptomsContinued difficulty with asthma this past winter with URIs/bronchitisSaw Pulm (Shalom Whitman) and added Symbicort (160/4.5) BID in fall 2018 after repeat cough Continued the Montelukast 10 mg qd. Ventolin MDI prn but seldom now. Next semester will live in an off campus house.No smoke exposuresHas occ. reflux that started last summer after antibiotics, but not much trouble with this now. No meds for this. allergies (comments) Allergens: TREES, GRASS, and COCKROACH dander only (08/07/16)Increased ocular symptoms this spring (starting around March) but not much trouble with nasal symptomsOn Fexofenadine daily since 01/19 and remains on Montelukast daily year round for allergy/asthma Tried the Pataday OTC bid with some relief but breaks through and unable to get her steroid eye drops. Spends 3 hours/day outside at work (started this job in early February)Lips and tongue tingle with drinking (cranberry/apple) and Zebra Cake.Sinusitis in February 2019 and 1-2 total the past 6 months. Was living in a (Freshman, Sorority house ([facility]) that had mold and cockroach problem asthma allergies allergies (comments) Allergens: TREES, GRASS, and COCKROACH dander only (08/07/16)Still waking up with sneezing and itchy eyes the past 2 weeks despite the use of meds early as planned below.Meds: in spring (-) for tree pollen and grass season uses Flonase 2 puffs each nostril BID, Fexofenadine 180 mg once daily, and Clear Eyes eye drops once daily for recent itchy eyes. Also has used Azelastine 1 puff each nostril qhs but none this year. Sinusitis a month ago and 3-4 total this past 6 months (Freshman, Sorority house normally air-conditioned) asthma Asthma-control Clair was seen jack wheeler for asthma management. Her asthma is classified as Mild Intermittent.She has had asthma related:-hospitalizations: NO-ER/Urgent care visits: NO-oral steroids: YES, 04/16-rescue inhaler use: YES-Missed school/work: NOAsthma Control Test score: 161. Unlimited activity: None of the time (5)2. Caused shortness of breath: 3-6 times a week (3)3. Interrupted sleep: Once a week (3)4. How often using rescue med: 2 or 3 times per week (3)5. Personal rating of control: Poorly controlled (2)The asthma is Well Controlled.Environmental exposure/control:Smoker: NOTobacco exposure: NOPets/animals: YESSpirometry was last performed on 04/20/2018. asthma (comments) Last seen 04/20 and before this on 03/16/17.This spring with increase in cough the past 1-2 weeks. Worse after outside exposures.Last visit with increased cough due to allergy the previous 2 months after an ear and sinus infection. Cough was present with laughing and was productive. Also having lots of headaches and even a migraine for the first time 6 days ago (photosensitivity) Worse at night and with exertion. Treated with short course of prednisone with improvement.Meds: Ventolin MDI prn and using it for recent cough. Functional Status Date Functional Assessmen t No Information Instructions Date Instruction Additional Infor gigi Continue dietary res triction and use Famotidine 20 mg once or twice daily as needed. Remember that reflux can be a trigger for asthma cough or shortness of breath sensation. Related to Gastroesophageal reflux disease, unspecified whether esophagitis present We reviewed appropri ate environmental control measures for your rhinitis.Please continue with your present nasal medications or treatment that includes restarting the above Montelukast 10 mg daily along with Fexofenadine 180 mg daily and if needed, Pataday eye drops twice daily. Call for increasing symptoms or difficulty with medications. Refills provided or call when more are needed. Related to Seasonal allergic rhinitis due to pollen We spoke via [facility] [employer] for your visit today Asthma is overall stable. ACT = 24.Resume daily seasonal controller medication (Montelukast 10mg once daily) for upcoming allergy season. I reviewed the benefits and risks including side effects of this medication. We discussed the use of rescue medication (Albuterol inhaler). Please call for the frequent use of your rescue inhaler (beyond that discussed above) or difficulties with your asthma causing frequent night time awakenings or trouble with exercise. Related to Mild persistent asthma, uncomplicated Medication management Continue meds per Dr Shlomo Whitman (Pul)Doing well on daily meds below. ACT = 25[facility] [employer] her freshman year (mold and cockroach) contributed to worsening asthma. Now on Symbicort 160/4.5, 2 puffs twice dailyRemains on Montelukast as above 10 mg once dailyVentolin inhaler as needed usually during winter for colds so far. Related to Moderate persistent asthma, uncomplicated Continue or resume y our eye drop medication daily (Pataday in grass season daily) as indicated for duration of the season/exposure. Consider low potency steroid eye drop for increasing symptoms. If possible start your eye drop slightly before the onset of your season and continue dosing daily for best results. Call for increasing symptoms or difficulty tolerating this medication. Related to Acute atopic conjunctivitis, bilateral We reviewed appropri ate environmental control measures for your rhinitis.Please continue with your present nasal medications or treatment that includes Fexofenadine 180 mg once daily, Fluticasone nasal spray, both in season and Montelukast 10 mg once daily year round Call for increasing symptoms or difficulty with medications. Refills provided or call when more are needed. Discussed option of Immunotherapy for treatment of allergic rhinitis and asthma symptoms. Reviewed immunotherapy initiation and extended treatment (cluster vs. conventional start)Given handouts and will call if interested in pursuing this further Related to Seasonal allergic rhinitis due to pollen Medication management Medication management We reviewed appropri ate environmental control measures for your rhinitis.Please continue with your present nasal medications or treatment that include Fluticasone, Fexofenadine, and the above new Montelukast daily for remainder of the allergy season (mid-summer) Call for increasing symptoms or difficulty with medications. Refills provided or call when more are needed.Discussed option of Immunotherapy for better control of seasonal allergies with less requirements for medications. Will also help with this trigger for your asthma. Related to Seasonal allergic rhinitis due to pollen Continue eye drop fr om OTC source for itchy eyes. Related to Acute atopic conjunctivitis, bilateral Pulmonary functions performed today with good effort were WITHIN NORMAL LIMITS for age and height. Asthma Control Test (normal >19) = 16. Asthma has not been optimally controlled in allergy season requiring a change in medication or additional medication. I recommend adding Montelukast 10 mg once daily for help with the cough and rhinitis symptoms. Will also use a short course of prednisone for present difficulty with asthma. I reviewed the benefits and risks including side effects of this medication. We discussed the use of rescue medication (Ventolin) and an Asthma Action Plan. Please call for the frequent use of your rescue inhaler (beyond that discussed above) or difficulties with your asthma causing frequent night time awakenings, difficulties with your ability to exercise, or prolonged cough associated with viral colds. Related to Mild intermittent asthma, uncomplicated Medication management Assessments Type Assessment Date No Information Patient Care Teams Name Effective Dates (start - stop) Status Members No Information
--- OUTSIDE RECORDS SUMMARY | 2023-02-24 03:50 | XMS_ITS | Continuity of Care Document ---
Author Organization [employer] Address [address] [place] [address] Phone Care Team Providers Care Automotive Technician Name Role Phone Deon Larson MD Unavailable [...] Procedure Date HEALTH RISK ASSESSMENT, PATIENT-FOCUSED OFFICE [id number] HEALTH RISK ASSESSMENT, PATIENT-FOCUSED OFFICE [id number] BODY MASS INDEX DOCD SYST BP LT 130 MM HG DIAST BP 80-89 MM HG Advance Directives Directive Yes / No Effective Date File Name No Information Encounters Encounter Description Practice Location Reason(s) For Visit Diagnoses Date Provider Providers Copied on Encounter [facility], [address], [place], [place], [id number] , tel: [phone] [facility] [place] No Information 3 Neo [address] [place] [address], [id number] , . tel: [phone] [facility], [address], [place], [place], [address] , tel: [phone] [facility] [place] No Information 3 Neo Chavarria. [address] [place] [address], [id number] , . tel: [phone] OFFICE [facility]WRL-BV [facility], [address], [place], [place], [address] , tel: [phone] [facility] [place] asthma (chief complaint) Asthma-con trol (chief complaint) allergies (chief complaint) GERD (chief complaint) Mild persistent asthma, uncomplicatedSeason al allergic rhinitis due to pollenGastroesophag eal reflux disease, unspecified whether esophagitis present 2 Neo Chav[address]. [address], [id number] , . tel: [phone] Referring Provider: Deon Larson [address] [place] [address], [address] . tel:[phone] OFFICE XYOKJ-IPT-RL TAILED [employer], [address], [place], [place], [address] , tel: [phone] [facility] [place] asthma (chief complaint) Asthma-con trol (chief complaint) allergies (chief complaint) Seasonal allergic rhinitis due to pollenModerate persistent asthma, uncomplicatedAcute atopic conjunctivitis, bilateral Hugo- 0 Neo Chav[address]. [address], [id number] , . tel: [phone] Referring Provider: Angle Saul, [address] [facility] [address], [place], [address]. tel:[phone] [facility] [employer], [address], [place], [place], [id number] , tel: [phone] [place] [facility] asthma (chief complaint) Asthma-con trol (chief complaint) allergies (chief complaint) Mild intermittent asthma, uncomplicatedSeason al allergic rhinitis due to pollenAcute atopic conjunctivitis, bilateral 9 Neo Chavar[address]. [address], [id number] , . tel: [phone] Referring Provider: Angle Saul, [address] [facility] [address], [place], [address]. tel:[phone] [employer], [address], [place], [place], [address] , tel: [phone] [facility] [place] Seasonal allergic rhinitis due to pollenMild intermittent asthma without complicationEncompass Health [facility] allergic rhinitis due to other allergic trigger 8 Neo Chavarria. [address], [id number] , [place]. tel: [phone] Referring Provider: Angle Saul, [address] [facility] [address], [place], [address]. tel:[phone] [facility] [employer], [address], [place], [place], [address] , tel: [phone] [place] [facility] Mild intermittent asthma without complicationSeasona l allergic rhinitis due to pollenAcute atopic conjunctivitis, bilateral Feb [address] [facility], [address], [id number] , . tel: [phone] Referring Provider: Angle Saul [address] [facility] [address], [place], [address]. tel:[phone] [facility], [address], [place], [place], [address] , tel: [phone] [place] [facility] Shortness of breathSeasonal allergic rhinitis due to pollenNon-seasonal allergic rhinitis due to other allergic trigger Jul- Neo Chavarria. [address] [facility], [facility] [address], [place], [id number] , . tel: [phone] Referring Provider: Angle Saul [address] [facility] [address], [place], [address]. 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 allergies Asthma-control [...] Was living in a (Freshman, [employer] house ([facility]) that had mold and cockroach problem asthma [...] rhinitis due to pollen We spoke via [facility] [employer] for your visit today Asthma is overall [...]
--- OUTSIDE RECORDS SUMMARY | 2025-09-04 21:02 | XMS_ITS | Clinical Summary ---
Author Organization [facility] Address [address] [place] [id number] Care Team Providers Care Director Utilization Management Name Role Phone Agustin Campoverde MD Primary Care Prov ider Nevaeh Taylor NP Unavailable [phone] Allergies Active Allergy Reactions Criticality Noted Date Comments Amoxicillin-Pot Clavulanate Hives,Rash,Urticari a Medium 09/21/2017 Cefdinir Hives,Rash Medium 09/21/2017 Cefepime Itching Medium 05/05/2019 Clarithromycin Hives,Rash,Urticari a Medium 08/07/2016 Fluoxetine Other (See comments) High 11/19/2024 Suicidal Ideations Made me very sad Sulfa (Sulfonamide Antibiotics) Chest tightness Medium 04/30/2023 Medications montelukast (SINGULAIR) 10 mg tablet 04/24/2023 Active fexofenadine (LACY) 180 mg tablet Take 1 tablet (180 mg total) by mouth 07/27/2018 Active albuterol HFA (PROVENTIL HFA,VENTOLIN HFA,PROAIR HFA) 90 mcg/actuation inhaler Inhale 2 puffs every 4 (four) hours 02/18/2020 Active dicyclomine (BENTYL) 10 mg capsuleIndicati ons:Chronic diarrhea Take 1 capsule (10 mg total) by mouth 4 (four) times a day as needed (abdominal pain, diarrhea) 90 capsule 11 07/02/2023 Active omeprazole (PriLOSEC) 20 mg capsule Take 1 capsule (20 mg total) by mouth daily 90 capsule 3 12/06/2024 Active hydrOXYzine (ATARAX) 25 mg tablet TAKE 1 (ONE) TABLET TO 2 (TWO) TABLETS BY MOUTH 4 TIMES DAILY NEEDED FOR FEELING ANXIOUS 11/20/2024 Active venlafaxine XR (EFFEXOR-XR) 150 mg 24 hr capsule Take 1 capsule (150 mg total) by mouth daily 01/03/2025 Active propranoloL (INDERAL) 10 mg tablet Take 1 tablet (10 mg total) by mouth 2 (two) times a day Active Active Problems Problem Noted Date Diagnosed Date Hepatic steatosis 03/24/2025 Assessment & Plan (03/24/2025 10:40 AM CDT): Patient with hepatic steatosis noted on imaging, normal liver enzymes. She also has obesity. I will obtain serology workup to rule out all causes of chronic liver disease. Mother is concerned she may have autoimmune liver disease given history of benign infancy neutropenia. I reassured her that I highly doubt she has any autoimmune liver disease given her normal liver chemistries. However, will include in lab work to rule out. Will also include A1C, TSH and lipid profile. Patient to undergo FibroScan today to evaluate degree of steatosis and if any fibrosis is present. Depending on results, she may need additional workup including MRI with elastography and/or liver biopsy. We discussed the importance of weight loss. She should avoid alcohol use if possible. Referral to nutrition placed. She may be a candidate for pharmacologic therapy but would like to see patient attempt weight loss by improving diet and increasing exercise first since she has not exhausted those measures. We have discussed the natural history of metabolic dysfunction-associated steatotic liver disease (MASLD), formerly known as NAFLD. We discussed the risks of progression to cirrhosis, association with hepatocellular carcinoma and potential future need for liver transplantation. We have discussed that the main mortality risks are primarily due to cardiovascular diseases, non-hepatic malignancies or cancers and only thirdly, from complications of liver disease. We recommend weight loss through diet and exercise. We recommend weight loss of 10% of current body weight over a period of a year. Lifestyle modification consisting of diet, exercise, and weight loss is necessary to treat patients with MASLD. The data shows that overall weight loss is the ag to improvement in the histopathological features of MASH. A combination of a low calorie diet (daily reduction by 500-1,000 kcal) and moderate-intensity exercise provides the best chances of achieving and maintaining weight loss over time. Weight loss of at least 3%-5% of body weight appears necessary to improve steatosis, but a greater weight loss (7%-10%) is needed to improve the majority of the histopathological features of MASH, including fibrosis. She will return to clinic in 1 year. Elevated transaminase level 12/06/2024 Rectal bleeding 12/06/2024 Encounters Date Type Department Care Team Description 07/03/2025 Telephone [facility] [address] [place] [address] [place] [address] Kirsten Kemp Lab due 06/30/2025 8:00 AM CDT Telemedicine [facility] [address] [facility] [address] [place] [address] Hepatic steatosis (Primary Dx) 06/22/2025 3:09 PM CDT - 06/22/2025 11:59 PM CDT Hospital Encounter [facility] [address] [place] [address] Pre-employment health screening examination Discharge Disposition: Discharge to home or self care 06/22/2025 Orders Only [facility] [address] [place] [address] Alfredo Castillo MD Pre-employment health screening examination (Primary Dx) from Last 3 Months Immunizations Immunization Administration Dates Next Due PPD TEST 04/30/2023 Surgical History Surgery Date Site/Laterality Comments INCISION AND DRAINAGE 11/30/2018 - 11/29/2019 parotid abscess TONSILLECTOMY/ADENOIDECTOMY 11/30/2019 - 11/29/2020 BREAST BIOPSY 02/17/2025 Right Medical History Medical History Date Comments Gastric reflux Neutropenia 2007 Family History Medical History Relation Name Comments Hodgkin's lymphoma Maternal Grandfather Breast cancer Maternal Grandmother Lung disease Other 1 Family history of Lung problems; Alcohol abuse Other 2 Family history of Alcoholism; Hypertension Other 3 Family history of Hypertension; Stroke Other 4 Family history of Stroke; Cancer Other 5 Family history of Cancer, unknown; Lung cancer Paternal Grandfather Relation Name Status Comments Maternal Grandfather Maternal Grandmother Other 1 Other 2 Other 3 Other 4 Other 5 Paternal Grandfather Social History Tobacco Use Types Packs/Day Years Used Date Smoking Tobacco: Never Smokeless Tobacco: Never Tobacco Cessation:Counseling Given: Not Answered AUDIT-C Answer Date Recorded Q1: How often do you have a drink containing alc ohol? Monthly or less 01/30/2025 Q2: How many drinks containi ng alcohol do you have on a typical day when you are drinking? 3 or 4 01/30/2025 Q3: How often do you have si x or more drinks on one occasion? Never 01/30/2025 Personal Safety Answer Date Recorded Have you ever been in or are you currently in a harmful physical or emotional relationship or is someone making you feel afraid or unsafe? Denies 01/30/2025 Comments No Sex and Gender Information Value Date Recorded Sex Assigned at Not on file Legal Sex Female 3:27 AM ADDICTION NURSE Gender Identity Not on file Sexual Orientation Not on file Obstetrics History Last Filed Vital Signs Vital Sign Reading Time Taken Comments Blood Pressure 113/71 03/23/2025 1:06 PM CDT Pulse 87 03/23/2025 1:06 PM CDT Temperature 36.1 C (97 F) 01/30/2025 8:35 AM ADDICTION NURSE Respiratory Rate 16 03/23/2025 1:06 PM CDT Oxygen Saturation 98% 03/23/2025 1:06 PM CDT Inhaled Oxygen Concentration - - Weight 108.9 kg (240 lb) 03/23/2025 1:06 PM CDT Height 172.7 cm (5' 8) 03/23/2025 1:06 PM CDT Body Mass Index 36.49 03/23/2025 1:06 PM CDT Plan of Treatment Health Maintenance Due Date Last Done Comments Cervical Cancer Screening 2000 Depression Screening 2000 Hepatitis C Screening 2000 Pneumococcal vaccine <65 (1 of 1 - PPSV23, PCV20, or PCV21) 07/07/2006 05/12/2006, 02/04/2001, 2000, Additional history exists Regular Well Visit/Exam 18-64 2018 DTaP/Tdap/Td Vaccine (7 - Td or Tdap) 04/26/2020 04/26/2010, 04/14/2005, 05/18/2001, Additional history exists Covid-19 Vaccine (2024-2 6 season) 2025 12/03/2022, 11/17/2021, 03/02/2021, Additional history exists Influenza Vaccine (#1) 2025 , 11/17/2021, 08/30/2020, Additional history exists Hepatitis B Screening Completed 02/04/2001 , 2000, 2000 Varicella Vaccines Completed 04/08/2011, 02/04/2001 HPV Vaccines Completed 10/07/2013, 05/2013, 09/28/2012 Medical Devices Implanted Type Area Home Stager Device Identifier Shelf Expiration Date Model / Serial / Lot Bard Peripheral Vascular Ultraclip Bard 17ga 10cm 2 Trigger Permanent Ultrasound [id number] - [id number] Implanted:Qty: 1 on 02/17/[address] [facility] [employer] [id number] / / Procedures Procedure Name Priority Date/Time Associated Diagnosis Comments T-SPOT.TB Routine 06/22/2025 2:14 PM CDT Pre-employment health screening examination from Last 3 Months Results * T-SPOT.TB Blood (06/22/2025 2:14 PM CDT) [facility] T-SPOT.TB Negative SeeBelow Comment: Normal Value: Negative A negative test result does not exclude the possibility of exposure to or infection with Mycobacterium tuberculosis (M. tuberculosis). Patients with recent exposure to TB infected individuals exhibiting a negative T-SPOT.TB result should be considered for retesting within 6 weeks or if other relevant clinical symptoms indicate. Results from T-SPOT.TB testing must be used in conjunction with each individual's epidemiological history, current medical status, and results of other diagnostic evaluations. The T-SPOT.TB test is qualitative and results are reported as positive, borderline or negative, given that the test controls perform as expected. In line with the Centers for Disease Control and Prevention's 2010 recommendation to report quantitative measurements alongside the qualitative result, the laboratory provides spot counts for informational purposes only. The T-SPOT.TB test should not be interpreted as a quantitative test. T-SPOT.TB Panel A Spot Count 0 [facility] T-SPOT.TB Panel B Spot Count 0 [facility] T-SPOT.TB Negative Control Passed [facility] T-SPOT.TB Positive Control Passed [facility] Comment: Test Performed at: [facility], [address] [address] [place] [address] ISAK TERAN,PHD Blood 06/22/2025 2:14 PM CDT 06/22/2025 4:37 PM CDT Narrative [facility] - 06/24/2025 3:42 PM CDT Patient is employed by/enrolled at:->[employer] [facility] [facility] Alfredo Castillo MD LAB MICROBIOLOGY - GENERAL OR DERABLES Final Result [facility] Department [place] [address] from Last 3 Months Insurance [employer] [facility] Address: [facility] [address] [place] [address] [employer] [facility] [employer]/PPO Address: [address] [address] Advance Directives For more information, please contact: [phone] * Full Code (Latest Code Status on File) Date Activated Date Inactivated Comments 01/30/2025 7:10 AM 01/30/2025 1:18 PM Care Teams Director Utilization Management Relationship Specialty Start Date End Date Agustin Campoverde MD PCP - General Family Medicine 02/09/24 Nevaeh Taylor NP Nurse Practitioner Obstetrics and Gynecology 01/09/25
[2025-09-04 21:08] VITALS: BP 150/89; PULSE 94; RESP 16; TEMP 36.4; O2SAT 99
[2025-09-05] MEDS: HYDROcodone/acetaminophen (*CRX) 5-325 MG TABLET 1 TAB PO (03:02)
--- OUTSIDE RECORDS SUMMARY | 2025-09-05 03:55 | XMS_ITS | Clinical Summary ---
Author Organization [facility] Address [address] [place] [id number] Care Team Providers Care Clinical Data Management Manager Name Role Phone Agustin Campoverde MD Primary Care Prov ider Nevaeh Taylor NP Unavailable [phone] Allergies Active Allergy Reactions Criticality Noted Date [...] Type Department Care Team Description 07/03/2025 Telephone [facility] [address] [facility] [address] [place] [address] [place] [address] Kirsten Kemp Lab due 06/30/2025 8:00 AM CDT Telemedicine [facility] [address] [facility] [address] [place] [address] Hepatic steatosis (Primary Dx) 06/22/2025 3:09 PM CDT - 06/22/2025 11:59 PM CDT Hospital Encounter [facility] [address] [place] [address] Pre-employment health screening examination Discharge Disposition: Discharge to home or self care 06/22/2025 Orders Only [facility] Health [address] [facility] [address] [place] [address] Alfredo Castillo MD Pre-employment health screening examination [...] on file Legal Sex Female 3: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 Gender Identity Not on file Sexual Orientation Not on file Obstetrics History Last Filed Vital Signs Vital Sign Reading Time Taken Comments Blood Pressure 113/71 03/23/2025 1:06 PM CDT Pulse 87 03/23/2025 1:06 PM CDT Temperature 36.1 C (97 F) 01/30/2025 8:35 AM INTERACTIVE MEDIA MARKETING SPECIALIST Respiratory Rate 16 03/23/2025 1:06 PM CDT [...] 05/2013, 09/28/2012 Medical Devices Implanted Type Area Signal Intelligence Analyst Device Identifier Shelf Expiration Date Model / Serial / Lot Bard Peripheral Vascular Ultraclip Bard 17ga 10cm 2 Trigger Permanent Ultrasound [id number] - [id number] Implanted:Qty: 1 on 02/17/2025 at [facility] [employer] [id number] / / Procedures Procedure Name Priority Date/Time Associated Diagnosis Comments T-SPOT.TB Routine 06/22/2025 2:14 PM CDT Pre-employment health screening examination from Last 3 Months Results * T-SPOT.TB Blood (06/22/2025 2:14 PM CDT) [facility] T-SPOT.TB Negative SeeBelow Comment: Normal Value: [...] T-SPOT.TB Panel A Spot Count 0 [facility] T-SPOT.TB Panel B Spot Count 0 [facility] T-SPOT.TB Negative Control Passed [facility] T-SPOT.TB Positive Control Passed [facility] Comment: Test Performed at: [facility], [employer] [address] [place] [address] ISAK TERAN,PHD Blood 06/22/2025 2:14 PM CDT 06/22/2025 4:37 PM CDT Narrative [facility] - 06/24/2025 3:42 PM CDT Patient is employed by/enrolled at:->[facility] Alfredo Castillo MD LAB MICROBIOLOGY - GENERAL OR DERABLES Final Result [facility] [place] [address] from Last 3 Months Insurance [facility] Advance Directives For more information, please contact: [phone] * Full Code (Latest Code Status on File) Date Activated Date Inactivated Comments 01/30/2025 7:10 AM 01/30/2025 1:18 PM Care Teams Clinical Data Management Manager Relationship Specialty Start Date End Date Agustin Campoverde MD PCP - General Family Medicine 02/09/24 Nevaeh Taylor NP Nurse Practitioner Obstetrics and Gynecology 01/09/25
--- NOTE | 2025-09-05 04:39 | ED.GENADULT ---
HPI - General Adult General Chief complaint: Wound/Laceration Stated complaint: pubic abscess Time Seen by Provider: 09/05/25 03:34 History of Present Illness HPI narrative: Patient is a 25-year-old female who presents emergency department chief complaint of possible abscess in the right pubic area the patient reports she has an area of redness and reports there is some firmness to it reports he gets cyst and reports she has had incision and drainage before in the past Related Data Home Medications ?Medication ?Instructions ?Recorded ?Confirmed ?Last Taken ?Type dicyclomine 10 mg capsule 10 mg PO TID PRN 06/07/24 08/11/25 Unknown History hydroxyzine HCl 25 mg tablet 25 mg PO BID PRN 11/21/24 08/11/25 Unknown History propranolol 10 mg tablet 10 mg PO BID PRN 11/21/24 08/11/25 Unknown History venlafaxine 150 mg 150 mg PO DAILY 12/28/24 08/11/25 Unknown History capsule,extended release 24 hr aripiprazole 5 mg tablet (Abilify) 5 mg PO DAILY 05/09/25 08/11/25 Unknown History Allergies Allergy/AdvReac Type Severity Reaction Status Date / Time Sulfa (Sulfonamide Allergy Severe Difficulty Verified 09/04/25 21:02 Antibiotics) Breathing amoxicillin Allergy Intermediate Hives Verified 09/04/25 21:02 cefdinir Allergy Intermediate Hives Verified 09/04/25 21:02 clarithromycin Allergy Unknown Hives Verified 09/04/25 21:02 POTASSIUM CLAVULANATE Allergy Unknown HIVES Uncoded 08/10/25 11:39 Review of Systems Review of Systems: A 10 system review of systems was completed on the patient and is negative except for what is stated in the HPI. Nursing and ancillary documentation was reviewed. [facility] Past Medical History Medical History Fatty liver Contusion of right patella Sprain of cruciate ligament of right knee Fracture of metatarsal of left foot, closed Benign mole Sebaceous cyst Anxiety Surgical History Surgical History History of incision and drainage (2019) Parotid Cyst History of tonsillectomy and adenoidectomy (2020) [place] teeth removed Family History Family History Mother Asthma Depression Heart disease Father Hypertension Elevated cholesterol Sibling Depression Grandparent Breast cancer Lung cancer Social History Social History Smoking status: Never smoker Alcohol intake: current Alcohol use details: seltzers no more than every other weekend. Substance use: never Lack of Transportation: No Lack of Food: Never True Current Housing: I Have Housing Concerned About Future Housing: No Difficulty Paying Gas/Electric Bills: No Difficulty Paying for Meds: No Currently Unemployed: No Education: Bachelor's Degree Difficulty w/ Childcare or Family Care: No Living arrangements: with roommate(s) Additional living arrangements comments: College student Occupation/Education: student Gender identity (if verbalized by the patient): Female Sexual Orientation (if Verbalized by the Patient): Straight or Heterosexual Spiritual care concerns: No Exam Narrative: GENERAL: Well-appearing, well-nourished, and in no acute distress. HEAD: Normocephalic, atraumatic. EYES: PERRLA and EOMI. ENT: Nares clear, no rhinorrhea or epistaxis. Mucous membranes moist. NECK: Supple. CHEST: Clear to auscultation. No respiratory distress. HEART: Regular rate and rhythm. No murmur heard. Normal peripheral pulses. ABDOMEN: Soft, nontender, nondistended, normal active bowel sounds. EXTREMITIES: Normal range of motion. No edema. SKIN: Warm, dry, no rash. There is a tender firm area redness present in the right pelvic area this was examined with a female tech present NEURO: No focal deficits. Alert and oriented x3. PSYCH: Normal mood and affect. Course Vital Signs Vital signs: Vital Signs Temperature 36.4 C 09/04/25 21:08 Pulse Rate 94 09/04/25 21:08 Respiratory Rate 16 09/04/25 21:08 Blood Pressure 150/89 H 09/04/25 21:08 Pulse Oximetry 99 09/04/25 21:08 Oxygen Delivery Room Air 09/04/25 21:08 Temperature 36.4 C 09/04/25 21:08 Pulse Rate 94 09/04/25 21:08 Respiratory Rate 16 09/04/25 21:08 Blood Pressure 150/89 H 09/04/25 21:08 Pulse Oximetry 99 10/06/25 21:08 Oxygen Delivery Room Air 09/04/25 21:08 Procedures Abscess I/D abdomen: Date of Incision: 09/05/25 Time of Incision: 04:42 Side (if applicable): right Local Anesthetic: lidocaine 1% Amount of anesthesia used (mL): 3 Technique: incised with #11 blade Amount of fluid expressed (mL): 1 Packing used?: none I&D Results: Blood Medical Decision Making MDM Narrative Medical decision making narrative: Patient reports that she has prior history of abscesses and has had incision and drainage and discussed with the patient the option between conservative management with oral antibiotics and incision and drainage attempt on exam does not feel like there was a large area of purulent material but the patient requested incision and drainage Vital Signs Vital Signs: Vital Signs Temperature 36.4 C 09/04/25 21:08 Pulse Rate 94 09/04/25 21:08 Respiratory Rate 16 09/04/25 21:08 Blood Pressure 150/89 H 09/04/25 21:08 Pulse Oximetry 99 09/04/25 21:08 Oxygen Delivery Room Air 09/04/25 21:08 Temperature 36.4 C 09/04/25 21:08 Pulse Rate 94 09/04/25 21:08 Respiratory Rate 16 09/04/25 21:08 Blood Pressure 150/89 H 09/04/25 21:08 Pulse Oximetry 99 09/04/25 21:08 Oxygen Delivery Room Air 09/04/25 21:08 Discharge Plan Discharge Clinical Impression: Abdominal wall abscess Patient Disposition: Home Condition: Stable Instructions: Antibiotic Form, Abscess Incision and Drainage (DC) Patient Language: Estonian Prescriptions: New doxycycline hyclate 100 mg capsule 100 mg PO BID 7 Days Qty: 14 0RF No Action venlafaxine 150 mg capsule,extended release 24hr 150 mg PO DAILY aripiprazole [Abilify] 5 mg tablet 5 mg PO DAILY spironolactone 50 mg tablet 50 mg PO DAILY Qty: 90 2RF diphenoxylate-atropine [Lomotil] 2.5-0.025 mg tablet 1 tablet PO QID PRN (Reason: diarrhea) Qty: 20 0RF dicyclomine 10 mg capsule 10 mg PO TID PRN hydroxyzine HCl 25 mg tablet 25 mg PO BID PRN propranolol 10 mg tablet 10 mg PO BID PRN omeprazole 20 mg capsule,delayed release(DR/EC) 20 mg PO DAILY Qty: 30 11RF ondansetron HCl 4 mg tablet 4 mg PO Q6H PRN (Reason: nausea and vomiting) Qty: 20 0RF Follow-up/Referrals: Renee Ford APRN [Primary Care Provider, [facility]] Time of Disposition: 04:44
== END 2025-09-05 05:00 | disposition home or self-care (01) ==
PROVIDERS: Emergency Provider Emergency Medicine; PCP Nurse Practitioner Family
DX: N73.9 Female pelvic inflammatory disease, unspecified (principal); F41.9 Anxiety disorder, unspecified; Z79.899 Other long term (current) drug therapy
CPT/HCPCS: 10060; 99283; A9270